=== PATIENT | male | born 1965 | race Caucasian/White ===

== ENCOUNTER 2020-09-09 07:32 | Outpatient (REF) | payer OTHER, SELFPAY ==
[2020-09-09 07:59] LABS: MANUAL DIFF FLAG NO
[2020-09-09 08:03] LABS: Basophils Percent Auto 0.6 % (0-2); Eosinophils Absolute Auto 0.5 X10*3/uL (0.0-0.4); Eosinophils Percent Auto 7.3 % (0-4); Hematocrit 46.8 % (42-52); Hemoglobin 15.4 g/dl (14.0-18.0); Imm Gran Abs Auto 0.02 X10*3/uL (0.00-0.03); Imm Gran Pct Auto 0.3 % (0.0-0.4); Lymphocytes Absolute Auto 1.9 X10*3/uL (1.2-4.9); Lymphocytes Percent Auto 29.5 % (20-40); Mean Corpuscular HGB Conc 32.9 g/dl (31.0-36.0); Mean Corpuscular Hemoglobin 32.3 pg (27.0-33.0); Mean Corpuscular Volume 98.1 fL (80-98); Mean Platelet Volume 11.4 fL (9.4-12.4); Monocytes Absolute Auto 0.7 X10*3/uL (0.1-1.2); Monocytes Percent Auto 10.1 % (2-11); Neutrophils Absolute Auto 3.4 X10*3/uL (2.0-8.3); Neutrophils Percent Auto 52.2 % (45-73); Platelet Count 205 X10*3/uL (160-400); Red Blood Count 4.77 X10*6/uL (4.60-5.80); Red Cell Distribution Width 12.2 % (11.0-16.0); White Blood Count 6.4 X10*3/uL (4.8-10.8)
[2020-09-09 08:30] LABS: Alanine Aminotransferase 25 U/L (0-40); Albumin Level 4.5 g/dL (3.5-5.0); Alkaline Phosphatase 56 U/L (39-117); Amylase 97 U/L (28-100); Anion Gap 11 (12-20); Aspartate Amino Transferase 20 U/L (5-37); Bilirubin Total 0.7 mg/dL (0.0-1.0); Blood Urea Nitrogen 18 mg/dL (9-16); Calcium 9.2 mg/dL (8.4-10.2); Carbon Dioxide 29 mmol/L (22-29); Chloride 103 mmol/L (96-108); Cholesterol 195 mg/dL; Estimated Glomerular Filt Rate > 60; Glucose Random 100 mg/dL (60-115); HDL Cholesterol 50 mg/dL; LDL Cholesterol Calculated 125 mg/dl; Potassium 4.3 mmol/l (3.3-5.1); Sodium 139 mmol/L (135-145); Total Protein 7.7 g/dL (6.5-8.0); Triglycerides 102 mg/dL
[2020-09-09 08:49] LABS: Lipase 88 U/L (8-78)
[2020-09-09 08:52] LABS: Free T4 (Free Thyroxine) 0.99 ng/dL (0.71-1.85); Thyroid Stimulating Hormone 1.75 uIU/mL (0.32-4.0)
[2020-09-09 09:02] LABS: Folate 15.8 ng/mL (> or = 4.0); Vitamin B12 334 pg/mL (200-900)
== END 2020-09-09 07:33 | disposition home or self-care (01) ==
LOC: HO.LAB 07:32
PROVIDERS: Visit Provider Internal Medicine
DX: E66.9 Obesity, unspecified (principal); K21.9 Gastro-esophageal reflux disease without esophagitis; E78.00 Pure hypercholesterolemia, unspecified
CPT/HCPCS: 36415; 80053; 80061; 82150; 82607; 82746; 83690; 84153; 84439; 84443; 85025

== ENCOUNTER 2020-09-23 13:56 | Outpatient (REF) | payer OTHER, SELFPAY ==
--- NOTE | 2020-09-24 13:31 | MHC.AU.P13 ---
Adult Audiological Evaluation Date of Visit: 09/23/20 Reason for Appointment: Audiological evaluation due to recent onset of tinnitus. Mr. Anguiano notes that he began to experience constant, bilateral tinnitus ~2 months ago. He has not noticed any changes to his hearing and feels he hears well. Mr. Anguiano notes mild pain and discomfort in the left ear. 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 Left Ear: Description of Hearing: Normal hearing from 250-4000 Hz, sloping to a mild hearing loss at 6000 Hz, and steeply sloping to a moderately severe hearing loss at 8000 Hz. Speech Recognition Threshold (SRT): Right Ear: 10 dBHL Left Ear: 10 dBHL Word Discrimination: Right Ear: 100% at 50 dBHL Left Ear: 100% at 50 dBHL Interpretation of Results: Tinnitus may be related to high-frequency hearing loss and history of noise exposure. Recommendations: Audiological re-evaluation in one year. Amplification is not warranted at this time. Hearing protection should be used when around loud noise. Discussed exacerbating factors of tinnitus, including high salt intake, caffeine, alcohol, stress/anxiety, and certain medications. It is recommended that Mr. Anguiano use low-level background noise (i.e. fan noise, music, radio, tv, sound generator) to aid in masking his tinnitus when he finds it bothersome. Diagnosis: Primary Diagnosis: H90.3 Bilateral Sensorineural Hearing Loss Secondary Diagnosis: H93.13 Tinnitus, Bilateral Services Performed: Services Performed: Comprehensive Audiological Evaluation (CPT 83709) Tympanometry (CPT 69639) Signature: Provider: Reg Ramsey, [facility]
== END 2020-09-23 13:57 | disposition home or self-care (01) ==
LOC: HO.SH 13:56
PROVIDERS: Visit Provider Internal Medicine
DX: H90.3 Sensorineural hearing loss, bilateral (principal); H93.13 Tinnitus, bilateral
CPT/HCPCS: 92557; 92567

== ENCOUNTER 2021-09-15 07:31 | Outpatient (REF) | payer OTHER, SELFPAY ==
[2021-09-15 07:47] LABS: MANUAL DIFF FLAG NO
[2021-09-15 08:01] LABS: Basophils Absolute Auto 0.1 X10*3/uL (0.0-0.2); Basophils Percent Auto 0.7 % (0-2); Eosinophils Absolute Auto 0.5 X10*3/uL (0.0-0.4); Eosinophils Percent Auto 7.5 % (0-4); Hematocrit 46.1 % (42.0-52.0); Hemoglobin 15.4 g/dl (14.0-18.0); Imm Gran Abs Auto 0.02 X10*3/uL (0.00-0.03); Imm Gran Pct Auto 0.3 % (0.0-0.4); Lymphocytes Absolute Auto 2.1 X10*3/uL (1.2-4.9); Lymphocytes Percent Auto 29.3 % (20-40); Mean Corpuscular HGB Conc 33.4 g/dl (31.0-36.0); Mean Corpuscular Hemoglobin 32.6 pg (27.0-33.0); Mean Corpuscular Volume 97.7 fL (80.0-98.0); Mean Platelet Volume 11.2 fL (9.4-12.4); Monocytes Absolute Auto 0.6 X10*3/uL (0.1-1.2); Monocytes Percent Auto 8.6 % (2-11); Neutrophils Absolute Auto 3.9 x10*3/uL (2.0-8.3); Neutrophils Percent Auto 53.6 % (45-73); Platelet Count 211 X10*3/uL (160-400); Red Blood Count 4.72 X10*6/uL (4.60-5.80); Red Cell Distribution Width 11.9 % (11.0-16.0); White Blood Count 7.2 X10*3/uL (4.8-10.8)
[2021-09-15 08:26] LABS: Estimated Average Glucose 108 mg/dL; Hemoglobin A1c % 5.4 %
[2021-09-15 08:31] LABS: Alanine Aminotransferase 24 U/L (0-40); Albumin Level 4.4 g/dL (3.5-5.0); Alkaline Phosphatase 64 U/L (39-117); Anion Gap 11 (12-20); Aspartate Amino Transferase 18 U/L (5-37); Bilirubin Total 0.5 mg/dL (0.0-1.0); Blood Urea Nitrogen 13 mg/dL (9-16); Calcium 10.3 mg/dL (8.4-10.2); Carbon Dioxide 29 mmol/L (22-29); Chloride 102 mmol/L (96-108); Cholesterol 186 mg/dL; Estimated Glomerular Filt Rate > 60; Glucose Random 103 mg/dL (60-115); HDL Cholesterol 47 mg/dL; LDL Cholesterol Calculated 119 mg/dl; Potassium 4.1 mmol/L (3.3-5.1); Sodium 138 mmol/L (135-145); Total Protein 7.9 g/dL (6.5-8.0); Triglycerides 102 mg/dL
[2021-09-15 08:53] LABS: Free T4 (Free Thyroxine) 0.95 ng/dL (0.71-1.85); Prostate Specific Antigen Scr 0.48 ng/mL (<0.05-4.0); Thyroid Stimulating Hormone 2.31 uIU/mL (0.32-4.0)
[2021-09-15 09:09] LABS: Folate 19.2 ng/mL (> or = 4.0); Vitamin B12 493 pg/mL (200-900)
== END 2021-09-15 07:32 | disposition home or self-care (01) ==
LOC: HO.LAB 07:31
PROVIDERS: PCP Internal Medicine; Visit Provider Internal Medicine
DX: I10 Essential (primary) hypertension (principal); E78.00 Pure hypercholesterolemia, unspecified; Z12.5 Encounter for screening for malignant neoplasm of prostate
CPT/HCPCS: 36415; 80053; 80061; 82607; 82746; 83036; 84153; 84439; 84443; 85025

== ENCOUNTER 2022-03-17 09:53 | Emergency (ER) | payer OTHER, SELFPAY ==
--- NOTE | ~2022-03-17 | XR_ITS ---
EXAMINATION: XR SHOULDER, LEFT CLINICAL INFORMATION: Left shoulder injury. COMPARISON: Left shoulder radiographs dated 06/05/2019. TECHNIQUE: Three views of the left shoulder. FINDINGS: The bones and soft tissues are normal. No fracture. Glenohumeral and acromioclavicular alignment is anatomic with normal joint space. No abnormal soft tissue calcifications. XR/XR shoulder LT min 2V IMPRESSION: Unremarkable left shoulder.
[2022-03-17 10:13] VITALS: BP 153/90; PULSE 75; RESP 18; TEMP 36.5; O2SAT 98; BMI 31.4
--- NOTE | 2022-03-17 11:31 | ED.EXTPRO ---
HPI - Extremity Problem General Chief complaint: Extremity Injury, Upper Stated complaint: l shoulder inj at work Time Seen by Provider: 03/17/22 11:16 Related Data Home Medications Medication Instructions Recorded Confirmed multivitamin,tx-minerals 1 tab PO DAILY 09/13/21 09/13/21 Previous Rx's Medication Instructions Recorded omeprazole 20 mg capsule,delayed 20 mg PO DAILY #30 caps 10/02/20 release albuterol sulfate 90 mcg/actuation 2 puff inhalation QID PRN 09/13/21 aerosol inhaler (ProAir HFA) shortness of breath or wheezing #8.5 grams ibuprofen 800 mg tablet 800 mg PO Q8H PRN pain #14 tabs 03/17/22 oxycodone 5 mg tablet 5 mg PO Q6H PRN pain #14 tabs 03/17/22 Allergies Allergy/AdvReac Type Severity Reaction Status Date / Time shell fish Allergy Unknown anaphylaxis Uncoded 03/17/22 10:13 PMFSH Past Medical History Medical History (Updated 03/17/22 @ 11:33 by MAISHA Watson) Alcohol abuse Allergic rhinitis Cervical radiculopathy Fatty liver GERD (gastroesophageal reflux disease) Hypercholesterolemia Hypertension Lumbar spondylosis Obesity (BMI 30-39.9) Right carpal tunnel syndrome Vitamin D deficiency Surgical History (Updated 05/28/20 @ 13:41 by BRENDON Mueller) History of back surgery History of open reduction and internal fixation (ORIF) procedure Family History Family History (Updated 09/08/20 @ 16:15 by Vidal Villalobos MD) Father No problems noted. Mother History of colostomy reversal Brother ETOH abuse Pancreatitis Myocardial infarct Social History Social History (Updated 09/13/21 @ 11:46 by Vidal Villalobos MD) Housing: House Alcohol intake: current Patient Tobacco Use Status: Former Tobacco user e-Cigarette/Vaping Use: Never Used Second Hand Smoke Exposure: No Advance Directives: No Advance Directives Information Provided: Yes Current occupational status: employed Physical Exam Vital Signs: Vital Signs: Last Vital Signs Temp 97.7 F 03/17/22 10:13 Pulse 75 03/17/22 10:13 Resp 18 03/17/22 10:13 BP 153/90 H 03/17/22 10:13 Pulse Ox 98 03/17/22 10:13 O2 Del Method 03/17/22 10:13 BMI result Body Mass Index 31.4 Discharge Plan Discharge Clinical Impression: Sprain of left shoulder, Work related injury Patient Disposition: Home, Self-Care Instructions: Shoulder Sprain (ED), Return to Work Instructions (ED) Prescriptions: New ibuprofen 800 mg tablet 800 mg PO Q8H PRN (Reason: pain) Qty: 14 0RF oxycodone 5 mg tablet 5 mg PO Q6H PRN (Reason: pain) Qty: 14 0RF Rx Instructions: Partial Fill upon patient request. No Action omeprazole 20 mg capsule,delayed release(DR/EC) 20 mg PO DAILY Qty: 30 5RF multivitamin,tx-minerals Tablet 1 tab PO DAILY albuterol sulfate [ProAir HFA] 90 mcg/actuation HFA aerosol inhaler 2 puff inhalation QID PRN (Reason: shortness of breath or wheezing) Qty: 8.5 0RF Referrals: Max Astudillo MD [Physician] - 2 weeks (If symptoms persist for longer than 2 weeks make a follow-up appointment) Wilfredo,Vidal Austin MD [Primary Care Provider] - 2 days Stand Alone Forms: Work/School Release
--- NOTE | 2022-03-17 11:36 | ED.UPPEXIN ---
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 He denies head injury loss of consciousness or any paresthesias, neck injury, back injury or any other extremity injury or pain. 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) Other Extremity Injury: left: shoulder Other injuries: none Place: work Severity: moderate Relieving factors: immobilization and rest Exacerbating factors: movement of extremity Context: injury (possible twist injury ) Associated symptoms: denies other symptoms Related Data Home Medications Medication Instructions Recorded Confirmed multivitamin,tx-minerals 1 tab PO DAILY 09/13/21 09/13/21 Previous Rx's Medication Instructions Recorded omeprazole 20 mg capsule,delayed 20 mg PO DAILY #30 caps 10/02/20 release albuterol sulfate 90 mcg/actuation 2 puff inhalation QID PRN 09/13/21 aerosol inhaler (ProAir HFA) shortness of breath or wheezing #8.5 grams ibuprofen 800 mg tablet 800 mg PO Q8H PRN pain #14 tabs 03/17/22 oxycodone 5 mg tablet 5 mg PO Q6H PRN pain #14 tabs 03/17/22 Allergies Allergy/AdvReac Type Severity Reaction Status Date / Time shell fish Allergy Unknown anaphylaxis Uncoded 03/17/22 10:13 Review of Systems Review of Systems: Constitutional : No Weight loss, No Fever, No Chills, No Night Sweats, No Fatigue, No Malaise ENT/Mouth : No Hearing loss, No Ear Pain, No Nasal Congestion, No Sinus Pain, No Hoarseness, No sore throat, No Rhinorrhea, No Swallowing Difficulty Eyes: No Eye Pain, No Swelling, No Redness, No Foreign Body, No Discharge, No Vision Changes Cardiovascular : No Chest Pain, No SOB, No Dyspnea on Exertion, No Orthopnea, No Edema, No Palpitations Respiratory : No Cough, No Sputum, No Wheezing, No Smoke Exposure, No Dyspnea Gastrointestinal : No Nausea, No Vomiting, No Diarrhea, No Constipation, No abdominal Pain, No Hematochezia, No Melena Genitourinary : no irregular bleeding, No Dysuria, No Urinary Frequency, No Hematuria, No Urinary Incontinence, No Urgency, No Flank Pain, No Urinary Flow Changes, No Hesitancy Musculoskeletal : + left shoulder joint pain, No Myalgias, No Joint Swelling Skin : No Skin Lesions, No rash Neuro : No Weakness, No Numbness, No Paresthesias, No Loss of Consciousness, No Dizziness, No Headache Psych : No Anxiety/Panic, No Depression, No SI/HI/AH/VH, No Social Issues, Heme/Lymph: No Bruising, No Bleeding,No Lymphadenopathy Endocrine : No Polyuria, No Polydipsia, No Temperature Intolerance Yes all other systems are reviewed and are negative [facility] Past Medical History Attestation statement: The following information was validated with the patient. Source: old records reviewed and nursing notes reviewed Medical History Alcohol abuse Allergic rhinitis Cervical radiculopathy Fatty liver GERD (gastroesophageal reflux disease) Hypercholesterolemia Hypertension Lumbar spondylosis Obesity (BMI 30-39.9) Right carpal tunnel syndrome Vitamin D deficiency Surgical History History of back surgery History of open reduction and internal fixation (ORIF) procedure Family History Family History Father No problems noted. Mother History of colostomy reversal Brother ETOH abuse Pancreatitis Myocardial infarct Social History Social History Housing: House Alcohol intake: current Patient Tobacco Use Status: Former Tobacco user e-Cigarette/Vaping Use: Never Used Second Hand Smoke Exposure: No Advance Directives: No Advance Directives Information Provided: Yes Current occupational status: employed Physical Exam Vital Signs: Vital Signs: Last Vital Signs Temp 97.7 F 03/17/22 10:13 Pulse 75 03/17/22 10:13 Resp 18 03/17/22 10:13 BP 153/90 H 03/17/22 10:13 Pulse Ox 98 03/17/22 10:13 O2 Del Method 03/17/22 10:13 BMI result Body Mass Index 31.4 vital signs have been reviewed as normal and appeared to be correct. Blood pressure 153/90. Heart rate normal. Respiration rate normal. Temperature normal. Oxygen saturation normal. Appearance: Alert. Oriented X3. No acute distress. Head: Normal external exam. Normocephalic. Atraumatic. Eyes: PERRLA. EOMI. Conjunctiva and sclera normal. Eyelids normal. ENT: Pharynx normal. Uvula midline. Moist mucous membranes. No lesions/ulcerations or masses noted on the tongue. Normal voice. No trismus noted. No drooling noted. No muffled voice noted. Neck: Normal inspection. Neck supple. FROM. No adenopathy. Thyroid Normal. No tracheal deviation noted. No crepitus is noted. No meningeal signs. No neck mass noted. No signs of trauma noted. CVS: Normal heart rate and rhythm. Heart sound normal. Pulses normal throughout. No murmurs/rales/gallops. Respiratory: No respiratory distress. Painless inspiration. Breath sounds normal. No wheezes/rales/rhonchi noted. No accessory muscle usage noted or decreased air movement noted. Back: Full range of motion noted. Skin: Skin warm and dry. Normal skin color. Normal skin turgor. No rashes/lesions/lacerations noted. Extremities: Patient with moderate tenderness palpation to the left AC joint and is unable to complete shoulder flexion above his head/shoulder extension behind his back and difficulty doing horizontal rotation. Has normal shoulder abduction/adduction. He has normal internal rotation. No obvious ligamentous or tendon injury noted. No obvious deformities noted. Otherwise all other extremities exhibit normal range of motion nontender. Neuro: Oriented X 3. No motor deficit. No sensory deficit. Reflexes normal. Normal steady gait. No focal neuro deficits noted. CN's II-XII intact bilaterally? Vascular: + radial pulses/+ 2 distal pedal pulses/+2 dorsalis pedis b/l. Normal cap refill. No cyanosis noted to upper extremity nails and lower extremity toes nails. Course Course Course Narrative: X-ray negative for any acute processes. Patient most likely shoulder sprain he does not have any obvious ligamentous or tendon injury although due to limited range of motion this is possible. I explained to him that will place him in a shoulder sling and he would have to follow up with work connection for his job and if symptoms persist for longer than 2-3 weeks and he should follow-up with orthopedics and to return if any new or worsening symptoms. Patient understands agrees with this plan. MDM - Extremity Injury (Upper) Medical Records Attestation: I reviewed the patient's medical records. Imaging Data Left shoulder x-ray: Attestation: I personally reviewed and interpreted this imaging study as follows: Radiologist's impression: FINDINGS: The bones and soft tissues are normal. No fracture. Glenohumeral and acromioclavicular alignment is anatomic with normal joint space. No abnormal soft tissue calcifications.? XR/XR shoulder LT min 2V IMPRESSION: Unremarkable left shoulder. Procedures Orthopedic Splinting/Casting Injury #1: Side: left Upper Extremity Injury Location: shoulder Upper Extremity Immobilizer: sling/shoulder immobilizer Discharge Plan Discharge Clinical Impression: Sprain of left shoulder, Work related injury Patient Disposition: Home, Self-Care Instructions: Shoulder Sprain (ED), Return to Work Instructions (ED) Prescriptions: New ibuprofen 800 mg tablet 800 mg PO Q8H PRN (Reason: pain) Qty: 14 0RF oxycodone 5 mg tablet 5 mg PO Q6H PRN (Reason: pain) Qty: 14 0RF Rx Instructions: Partial Fill upon patient request. No Action omeprazole 20 mg capsule,delayed release(DR/EC) 20 mg PO DAILY Qty: 30 5RF multivitamin,tx-minerals Tablet 1 tab PO DAILY albuterol sulfate [ProAir HFA] 90 mcg/actuation HFA aerosol inhaler 2 puff inhalation QID PRN (Reason: shortness of breath or wheezing) Qty: 8.5 0RF Referrals: Max Astudillo MD [Physician] - 2 weeks (If symptoms persist for longer than 2 weeks make a follow-up appointment) Vidal Villalobos MD [Primary Care Provider] - 2 days Stand Alone Forms: Work/School Release
[2022-03-17] MEDS: Ibuprofen 800 MG TABLET PO (11:39)
== END 2022-03-17 11:48 | disposition home or self-care (01) ==
PROVIDERS: Emergency Provider Student in an Organized Health Care Education/Training Program; PCP Internal Medicine
DX: S43.402A Unspecified sprain of left shoulder joint, initial encounter (principal); X58.XXXA Exposure to other specified factors, initial encounter; Y93.9 Activity, unspecified; Y92.9 Unspecified place or not applicable; Y99.0 Civilian activity done for income or pay; Z79.899 Other long term (current) drug therapy
CPT/HCPCS: 29105; 73030; 99283

== ENCOUNTER → 2022-03-21 10:40 | Outpatient (BNVA) | payer OTHER, SELFPAY | PROVIDERS: PCP Internal Medicine; Visit Provider Physician Assistant Medical | DX: S43.52XA Sprain of left acromioclavicular joint, initial encounter (principal); X58.XXXA Exposure to other specified factors, initial encounter | CPT/HCPCS: 99203 ==

== ENCOUNTER → 2022-03-30 11:08 | Outpatient (BNVA) | payer OTHER, SELFPAY | PROVIDERS: PCP Internal Medicine; Visit Provider Physician Assistant Medical | DX: S43.52XD Sprain of left acromioclavicular joint, subsequent encounter (principal); X58.XXXD Exposure to other specified factors, subsequent encounter | CPT/HCPCS: 99213 ==

== ENCOUNTER → 2022-04-18 15:37 | Outpatient (BNVA) | payer OTHER, SELFPAY | PROVIDERS: PCP Internal Medicine; Visit Provider Internal Medicine | DX: M24.812 Other specific joint derangements of left shoulder, not elsewhere classified (principal) | CPT/HCPCS: 99213 ==

== ENCOUNTER 2022-04-19 19:23 | Outpatient (REF) | payer OTHER, SELFPAY ==
--- NOTE | ~2022-04-19 | MR_ITS ---
EXAMINATION: MR SHOULDER WITHOUT CONTRAST, LEFT CLINICAL INFORMATION: Left shoulder pain, limited range of motion, and clicking following a fall on 03/17/2022. COMPARISON: Most recent left shoulder radiographs dated 03/17/2022. TECHNIQUE: Multisequence MR imaging of the left shoulder was obtained without contrast on a high-field strength scanner. FINDINGS: ROTATOR CUFF: Supraspinatus tendinosis with distal bursal surface partial tearing measuring 1.4 x 1.3 cm (AP x ML). No muscle atrophy or fatty infiltration. BICEPS: Intact proximal long head biceps tendon. Mild fluid within the tendon sheath consistent with mild tenosynovitis. CORACOACROMIAL ARCH: The undersurface of the acromion is curved with tiny subacromial spurs. Zcaepnyw-hv-epinqh acromioclavicular osteoarthritis. Fluid and edema within the subacromial-subdeltoid bursa consistent with mild bursitis. LABRUM/CAPSULE: No displaced labral tear. Intact joint capsule. GLENOHUMERAL JOINT/MARROW: Intact articular cartilage. No acute osseous injury. MR/MR shoulder LT wo con IMPRESSION: 1. Supraspinatus tendinosis with distal bursal surface partial tearing measuring 1.4 x 1.3 cm. 2. Mild proximal long head biceps tenosynovitis without a measurable tendon tear. 3. Tonhcfro-vz-wzfewm acromioclavicular osteoarthritis with tiny subacromial spurs. 4. Mild subacromial-subdeltoid bursitis.
== END 2022-04-19 19:24 | disposition home or self-care (01) ==
LOC: HO.MRI 19:23
PROVIDERS: Visit Provider Internal Medicine
DX: M25.512 Pain in left shoulder (principal)
CPT/HCPCS: 73221

== ENCOUNTER → 2022-04-28 10:26 | Outpatient (BNVA) | payer OTHER, SELFPAY | PROVIDERS: PCP Internal Medicine; Visit Provider Physician Assistant | DX: S43.52XD Sprain of left acromioclavicular joint, subsequent encounter (principal); X58.XXXD Exposure to other specified factors, subsequent encounter | CPT/HCPCS: 99213 ==

== ENCOUNTER 2022-07-01 09:35 | Outpatient (REF) | payer OTHER, SELFPAY ==
[2022-07-01 10:59] LABS: Appearance Urine Clear; Color Urine Yellow; Glucose Urine UA Negative (Negative); Leukocyte Esterase Urine Negative (Negative); Nitrite Urine Negative (Negative); Urine Blood Negative (Negative); Urine Ketones Negative (Negative); Urine Protein Negative (Neg-Trace)
[2022-07-01 11:08] LABS: Bacteria Urine None Seen (None Seen); Hyaline Casts Urine 0-2 /LPF (0-2); RBC Urine 0-2 /HPF (0-2); Squamous Epithelial Cell Urine 0-2 /HPF (0-2); WBC Urine 0-5 /HPF (0-5)
== END 2022-07-01 09:36 | disposition home or self-care (01) ==
LOC: HO.LAB 09:35
PROVIDERS: PCP Internal Medicine; Visit Provider Internal Medicine
DX: I10 Essential (primary) hypertension (principal)
CPT/HCPCS: 81001

== ENCOUNTER 2022-07-02 07:27 | Outpatient (REF) | payer OTHER, SELFPAY ==
--- NOTE | ~2022-07-02 | XR_ITS ---
EXAMINATION: XR CHEST CLINICAL INFORMATION: Cough COMPARISON: August 11, 2014 TECHNIQUE: 2 views of the chest were obtained. FINDINGS: No significant abnormality is noted involving the heart, lungs, mediastinum, bony thorax or soft tissues. Linear scarring seen right upper lobe. XR/XR chest 2V IMPRESSION: No acute disease.
== END 2022-07-02 07:28 | disposition home or self-care (01) ==
LOC: HO.XRAY 07:27
PROVIDERS: PCP Internal Medicine; Visit Provider Internal Medicine
DX: R05.9 Cough, unspecified (principal)
CPT/HCPCS: 71046

== ENCOUNTER 2022-09-16 07:02 | Outpatient (REF) | payer OTHER, SELFPAY ==
[2022-09-16 07:16] LABS: MANUAL DIFF FLAG NO
[2022-09-16 07:27] LABS: Basophils Absolute Auto 0.1 X10*3/uL (0.0-0.2); Basophils Percent Auto 0.6 % (0-2); Eosinophils Absolute Auto 0.5 X10*3/uL (0.0-0.4); Eosinophils Percent Auto 6.9 % (0-4); Hematocrit 44.9 % (42.0-52.0); Hemoglobin 15.2 g/dl (14.0-18.0); Imm Gran Abs Auto 0.03 X10*3/uL (0.00-0.03); Imm Gran Pct Auto 0.4 % (0.0-0.4); Lymphocytes Absolute Auto 2.6 X10*3/uL (1.2-4.9); Lymphocytes Percent Auto 32.9 % (20-40); Mean Corpuscular HGB Conc 33.9 g/dl (31.0-36.0); Mean Corpuscular Hemoglobin 32.8 pg (27.0-33.0); Mean Corpuscular Volume 96.8 fL (80.0-98.0); Mean Platelet Volume 10.7 fL (9.4-12.4); Monocytes Absolute Auto 0.8 X10*3/uL (0.1-1.2); Neutrophils Absolute Auto 3.8 x10*3/uL (2.0-8.3); Neutrophils Percent Auto 49.2 % (45-73); Platelet Count 237 X10*3/uL (160-400); Red Blood Count 4.64 X10*6/uL (4.60-5.80); Red Cell Distribution Width 12.7 % (11.0-16.0); White Blood Count 7.8 X10*3/uL (4.8-10.8)
[2022-09-16 07:44] LABS: Estimated Average Glucose 105 mg/dL; Hemoglobin A1c % 5.3 %
[2022-09-16 08:02] LABS: Alanine Aminotransferase 32 U/L (0-40); Albumin Level 4.1 g/dL (3.5-5.0); Alkaline Phosphatase 68 U/L (39-117); Anion Gap 11 (12-20); Aspartate Amino Transferase 18 U/L (5-37); Bilirubin Total 0.6 mg/dL (0.0-1.0); Blood Urea Nitrogen 12 mg/dL (9-16); Calcium 9.6 mg/dL (8.4-10.2); Carbon Dioxide 29 mmol/L (22-29); Chloride 106 mmol/L (96-108); Cholesterol 203 mg/dL; Estimated Glomerular Filt Rate > 60; Glucose Random 99 mg/dL (60-115); HDL Cholesterol 41 mg/dL; LDL Cholesterol Calculated 138 mg/dl; Potassium 4.5 mmol/L (3.3-5.1); Sodium 141 mmol/L (135-145); Total Protein 7.2 g/dL (6.5-8.0); Triglycerides 124 mg/dL
[2022-09-16 08:20] LABS: Free T4 (Free Thyroxine) 0.95 ng/dL (0.71-1.85); Prostate Specific Antigen Scr 0.45 ng/mL (<0.05-4.0); Thyroid Stimulating Hormone 2.54 uIU/mL (0.32-4.0)
[2022-09-16 08:30] LABS: Folate 14.6 ng/mL (> or = 4.0); Vitamin B12 381 pg/mL (200-900)
== END 2022-09-16 07:03 | disposition home or self-care (01) ==
LOC: HO.LAB 07:02
PROVIDERS: PCP Internal Medicine; Visit Provider Internal Medicine
DX: Z12.5 Encounter for screening for malignant neoplasm of prostate (principal); R73.02 Impaired glucose tolerance (oral); E78.00 Pure hypercholesterolemia, unspecified
CPT/HCPCS: 36415; 80053; 80061; 82607; 82746; 83036; 84153; 84439; 84443; 85025

== ENCOUNTER → 2022-09-26 13:34 | Outpatient (REF) | payer OTHER, SELFPAY ==
--- NOTE | 2022-09-26 13:37 | HM_ITS ---
Conclusion: 1. Patient was monitored for total of 3 days 2. Baseline was normal sinus rhythm with average heart of 89 beats per minute 3. Frequent sinus tachycardia with 28.5% of time heart rate greater than 100 beats per minute 4. Total of 1490 PVCs accounting for 0.4% total beats account for occasional PVCs 5. No significant pauses or bradycardia noted 6. One 18 beat run of SVE which appears to be possibly atrial fibrillation as it is irregularly irregular. No prolonged episodes noted 7. Patient reported 1 event without symptoms, correlated with sinus rhythm MTDD
== END ==
LOC: HO.CARD 13:34
PROVIDERS: PCP Internal Medicine; Visit Provider Internal Medicine
DX: R00.2 Palpitations (principal)
CPT/HCPCS: 93242

== ENCOUNTER → 2022-10-14 08:52 | Outpatient (REF) | payer OTHER, SELFPAY ==
--- NOTE | 2022-10-14 08:54 | CA_ITS ---
Transthoracic Echocardiogram Patient (Last, First, Middle): Paco Anguiano, Gender: Male Date of : 1965 Age: 57 Procedure Date: 10/14/2022 Procedure Type: Transthoracic Echocardiogram Location: OP Height: 165.1 cm Weight: 85.73 kg BSA: 1.93 m2 Heart Rate: 69 bpm BP: 140 / 80 mmHg Territory Service Representative: TOBY Referring MD: Vidal Villalobos MD Symptoms: I48.91 - Unspecified atrial fibrillation Study Quality: Fair ECG Rhythm: Sinus Conclusions: - The left ventricular systolic function is mildly decreased. The calculated ejection fraction is 51% by biplane method. - No obvious valvular pathology seen on this study. - There is mild dilatation of the sinuses of Valsalva measuring 4.50 cm. Findings Left Ventricle Normal left ventricular cavity size. There is normal left ventricular wall thickness. The left ventricular systolic function is mildly decreased. The calculated ejection fraction is 51% by biplane method. There is no evidence of regional wall motion abnormalities. There is mild global hypokinesis. Diastolic function is normal for age. Right Ventricle Normal right ventricular cavity size and systolic function. Atria Both atria are normal in size. Aortic Valve There is a normal trileaflet aortic valve. There is no aortic valve stenosis. There is no aortic valve regurgitation. Mitral Valve There is mild anterior mitral leaflet thickening. There is no mitral valve regurgitation. There is no mitral valve stenosis. Pulmonic Valve The pulmonic valve is likely normal. Tricuspid Valve There is no tricuspid valve regurgitation. Tricuspid regurgitation envelope is inadequate for calculation of right ventricular systolic pressure. Great Vessels The asc aorta is normal in size. There is mild dilatation of the sinuses of Valsalva measuring 4.50 cm. Venous The inferior vena cava is normal in size and collapses greater than 50% with inspiration. Pericardium/Pleural There is no evidence of pericardial effusion. Prior Study Comparison No prior study available for comparison. Recommendations, Care & Conclusions No obvious valvular pathology seen on this study. Measurements 2D Linear Measurements IVSd: 1.01 0.6-0.9/0.6-1.0 cm LVIDd: 4.59 3.9-5.3/4.2-5.9 cm LVIDd Index: 2.38 2.4-3.2/2.2-3.1 cm/m2 LVIDs: 2.70 2.0-3.6 cm LVPWd: 0.84 0.7-1.1 cm LA Diam: 3.30 2.7-3.8/3.0-4.0 cm LAIDs Index: 1.71 1.5-2.3 cm/m2 LV Mass: 176.69 67-162/88-224 g LV Mass Index: 91.55 43-95/49-115 g/m2 LVOT Diam: 2.10 3.0+(-)1.3 cm 2D Systolic Function EF 4C: 53.10 >55% EF 2C: 49.00 >55% EF BiP: 50.60 >55% Mitral Valve MV Pk E: 0.71 MV PK A: 0.62 MV Decel Time: 215.00 E/A: 1.10 E'Lateral: 9.68 E'Medial: 7.07 E/E' Med: 10.00 E/E' Lat: 7.30 PHT: 63.00 MVA PHT: 3.49 Decel Dare: 3.29 Aortic Valve AoV Pk Jigar: 1.16 AoV Mn Jigar: 0.83 AoV VTI: 0.24 AoV Pk Grad: 5.00 Aov Mn Grad: 3.00 BLAZE Cont.VTI: 3.17 LVOT LVOT Pk Jigar: 1.13 LVOT Mn Jigar: 0.80 LVOT VTI: 0.22 LVOT Pk Grad: 5.00 LVOT Mn Grad: 3.00 LVOT Diam: 2.10 LVOT Area: 3.46 Diastolic Function MV Pk E: 0.71 MV Pk A: 0.62 E/A: 1.10 E'Medial: 7.07 E/E' Med: 10.00 E' Laterial: 9.68 E/E' Lat: 7.30 Right Ventricle TAPSE (mm): 17.10 TVS' Jigar: 12.30 Tricuspid Valve RA Press: 3.00 Great Vessels Aorta Sinus of Valsalva: 4.50 2.0-3.5 cm Ao Asc: 3.70 2.1-3.4 cm Pulmonary Valve PV Pk Jigar: 0.68 Peak PV Grad: 2.00 Updated in Other Vendor System with Status of Final James Chambers MD electronically signed on 10/15/2022 1:34:58 PM with status of Final
== END ==
LOC: HO.CARD 08:52
PROVIDERS: PCP Internal Medicine; Visit Provider Internal Medicine
DX: I48.91 Unspecified atrial fibrillation (principal)
CPT/HCPCS: 93306

== ENCOUNTER → 2022-12-13 13:01 | Outpatient (BNVA) | payer OTHER, SELFPAY | PROVIDERS: PCP Internal Medicine; Referring Provider Internal Medicine; Visit Provider Internal Medicine Cardiovascular Disease | DX: I48.91 Unspecified atrial fibrillation (principal); I71.20 Thoracic aortic aneurysm, without rupture, unspecified; I10 Essential (primary) hypertension | CPT/HCPCS: 93005; 99202 ==

== ENCOUNTER 2022-12-16 12:00 | Outpatient (RCR) | payer OTHER, SELFPAY | END 2022-12-23 12:12 | disposition home or self-care (01) | LOC: HO.PT 12:00 | PROVIDERS: PCP Internal Medicine; Visit Provider Orthopaedic Surgery | DX: Z98.890 Other specified postprocedural states (principal) | CPT/HCPCS: 97110; 97140; 97162; 97535 ==

== ENCOUNTER → 2022-12-20 09:13 | Outpatient (REF) | payer OTHER, SELFPAY ==
--- NOTE | 2022-12-20 09:22 | CA_ITS ---
Acquisition Time: 2022-12-20 10:20:45 Total Exercise Time: 00:10:34 Test Indications: PALPITATIONS Medications: Protocol: KARRI Max HR: 166 BPM 103% of Pred: 161 BPM Max BP: 188/088 mmHG Max Work Load: 12.6 METS Exercise stress test with exercise 10 min 34 sec of Karri protocol, achieving 103% MPHR, 12.6 METs, with mild sob, no chest discomfort or palpitations, with 3 isolated PVCs noted in early recovery, without other arrythmia, with normotensive response to exercise, without EKG changes meeting criteria for ischemia. Test reviewed with Dr Giraldo Referred By: Juwan Giraldo Overread By: MARIBEL CONNORS
[2022-12-20 10:39] LABS: Anion Gap 11 (12-20); Blood Urea Nitrogen 12 mg/dL (9-16); Calcium 9.5 mg/dL (8.4-10.2); Carbon Dioxide 25 mmol/L (22-29); Chloride 107 mmol/L (96-108); Estimated Glomerular Filt Rate > 60; Glucose Random 101 mg/dL (60-115); Potassium 4.4 mmol/L (3.3-5.1); Sodium 139 mmol/L (135-145)
[2022-12-20 10:42] LABS: B Type Natriuretic Peptide 26 pg/mL (<100)
== END ==
LOC: HO.CARD 09:13
PROVIDERS: PCP Internal Medicine; Visit Provider Internal Medicine Cardiovascular Disease
DX: R00.2 Palpitations (principal); I48.91 Unspecified atrial fibrillation; I71.20 Thoracic aortic aneurysm, without rupture, unspecified
CPT/HCPCS: 36415; 80048; 83880; 93017

== ENCOUNTER 2023-01-02 10:54 | Outpatient (REF) | payer OTHER, SELFPAY ==
--- NOTE | ~2023-01-02 | CT_ITS ---
EXAMINATION: CT ANGIOGRAM CHEST CLINICAL INFORMATION: Thoracic aortic aneurysm without rupture. COMPARISON: None available. TECHNIQUE: Multiple axial images were obtained through the chest after the administration of 50 mL of Omnipaque 350 intravenous contrast. Extensive vascular post-processing including two-dimensional and three-dimensional reformatted images were created and reviewed on an independent workstation. This CT examination was performed using dose optimization techniques as appropriate, variously including the following: *Automated exposure control *Adjustment of mA and/or kV according to patient size (this includes techniques or standardized protocols for targeted exams where dose is matched to indication/reason for exam; i.e. extremities or head) *Use of iterative reconstruction technique DLP: 159 mGy-cm VASCULAR FINDINGS: There is mild aneurysmal dilatation of the ascending thoracic aorta. Measurements performed perpendicular to a center line show a maximal dimension in the ascending aorta of 4.1 cm. At the level of the sinuses of Valsalva, maximum dimension is minimally larger, at 4.2 Cm. Three-vessel branching pattern of the arch is seen with widely patent great vessels. A tricuspid aortic valve is present. NONVASCULAR FINDINGS: LUNGS: The lungs are clear with no evidence of inflammation or nodules. MEDIASTINUM: Heart size is normal. No mediastinal or hilar lymphadenopathy is detected. No significant coronary calcium is seen. PLEURA: There is no pleural effusion. No pleural mass or thickening. AXILLA: No lymphadenopathy. UPPER ABDOMEN: Unremarkable. OSSEOUS STRUCTURES: Mild degenerative changes are present in the spine. No bony destructive lesions. CT/CT angio chest aorta IMPRESSION: Mild aneurysmal dilatation of the ascending aorta with maximal dimension at the level of the sinuses of Valsalva of 4.6 with 4.1 cm in the ascending aorta. Maximal dimension for a patient of 57 years of age would be 4.0 cm. Normal aortic diameters (in millimeters) Ascending aorta: 31+0.16 x age. Descending aorta: 21+0.16 x age. Reference: [employer] Cardiovascular J 2006 January; 40 (3): 175-178
[2023-01-02] MEDS: iohexoL 350 MG/ML 100 ML INFUS..BTL IV (11:42)
== END 2023-01-02 10:55 | disposition home or self-care (01) ==
LOC: HO.CT 10:54
PROVIDERS: PCP Internal Medicine; Visit Provider Internal Medicine Cardiovascular Disease
DX: I71.20 Thoracic aortic aneurysm, without rupture, unspecified (principal)
CPT/HCPCS: 71275; Q9967

== ENCOUNTER 2023-02-01 06:27 | Outpatient (REF) | payer OTHER, SELFPAY ==
[2023-02-01 07:41] LABS: Estimated Average Glucose 100 mg/dL; Hemoglobin A1c % 5.1 %
[2023-02-01 08:03] LABS: Alanine Aminotransferase 19 U/L (0-40); Albumin Level 4.2 g/dL (3.5-5.0); Alkaline Phosphatase 75 U/L (39-117); Anion Gap 12 (12-20); Aspartate Amino Transferase 17 U/L (5-37); Bilirubin Total 0.4 mg/dL (0.0-1.0); Blood Urea Nitrogen 17 mg/dL (9-16); Calcium 9.8 mg/dL (8.4-10.2); Carbon Dioxide 31 mmol/L (22-29); Chloride 108 mmol/L (96-108); Cholesterol 189 mg/dL; Estimated Glomerular Filt Rate 59; Glucose Random 102 mg/dL (60-115); HDL Cholesterol 46 mg/dL; LDL Cholesterol Calculated 125 mg/dl; Sodium 146 mmol/L (135-145); Triglycerides 90 mg/dL
== END 2023-02-01 06:28 | disposition home or self-care (01) ==
LOC: HO.LAB 06:27
PROVIDERS: PCP Internal Medicine; Visit Provider Internal Medicine
DX: E78.00 Pure hypercholesterolemia, unspecified (principal); R73.02 Impaired glucose tolerance (oral)
CPT/HCPCS: 36415; 80053; 80061; 83036

== ENCOUNTER 2023-03-06 09:00 | Outpatient (RCR) | payer OTHER, SELFPAY | END 2023-04-13 09:15 | disposition home or self-care (01) | LOC: HO.PT 09:00 | PROVIDERS: PCP Internal Medicine; Visit Provider Orthopaedic Surgery | DX: Z98.890 Other specified postprocedural states (principal) | CPT/HCPCS: 97110; 97161 ==

== ENCOUNTER 2023-05-18 15:57 | Outpatient (AMB) | payer OTHER, SELFPAY ==
[2023-05-18 16:14] VITALS: BP 128/70; PULSE 78; RESP 12; O2SAT 98; BMI 30.5
--- NOTE | 2023-05-18 16:14 | A.OFFPC_ITS ---
Vital Signs 05/18/23 16:14 Height 5 ft 5 in Weight 183 lb 6 oz BMI 30.5 BP 128/70 Blood Pressure Location Lt brachial Position Sitting Respiration 12 Pulse 78 Pulse Source Pulse Oximeter Pulse Oximetry (%) 98 Oxygen Delivery Method Room Air Intake Visit Reasons: hypercholesterol , a fib Intake Note: Patient would like to get flu shot if possible. Technical Specialist Required: No Accompanied by: Self / Same As Patient Allergies shell fish Allergy (Unknown, Uncoded 05/18/23 16:20) Anaphylaxis Tobacco use date assessed: 09/15/22 Dental Screening Dental Screen Date: 05/18/23 Did you have a dental visit in the last 12 months?: No Did you have a dental problem in the last 6 months where you did not have access to dental care?: No Was dental information given to patient?: Patient has dentist HPI hypercholesterol , a fib HPI0 Details 58-year-old obese male with atrial fibri llation hypertension thoracic aortic aneurysm reactive airway disease impaired glucose tolerance GERD and hyp ercholesterolemia coming in for follow-up. Last seen in January 2023. Patient is up-to-date with colonoscopy echocardiogram was last done in September 2022 dilatation to 4.5. Patient has been doing fine otherwise no nausea no vomiting no chest pains no shortness of breath no bowel bladder symptoms. [facility] Medical History Palpitations Allergic rhinitis Alcohol abuse GERD (gastroesophageal reflux disease) Lumbar spondylosis Obesity (BMI 30-39.9) Vitamin D deficiency Cervical radiculopathy Right carpal tunnel syndrome Fatty liver Hypercholesterolemia Hypertension Surgical History H/O shoulder surgery History of back surgery History of open reduction and internal fixation (ORIF) procedure Family History Father No problems noted. Mother History of colostomy reversal Brother ETOH abuse Pancreatitis Myocardial infarct Brother Myocardial infarct Social History Housing: House Alcohol intake: current Patient Tobacco Use Status: Former Tobacco user Tobacco use type: Cigarette Years Smoked: quit 1989 e-Cigarette/Vaping Use: Never Used Second Hand Smoke Exposure: No Current occupational status: employed Current occupation: On leave Cognitive needs: No Hearing needs: No Vision needs: No Questionnaire Thrive Questionnaire Date Thrive assessed: 09/15/22 JOSE-7 AMB Questionnaire JOSE-7 Date JOSE - 7 assessed: 09/15/22 Source: Developed by Drs. Joshua Kaminski, Ginette Bruce, Luis Eduardo Jones and colleagues, with an educational sanjuanita from [employer]. Physical exam (Primary Care) Vital Signs: Last Vital Signs Pulse 78 05/18/23 16:14 Resp 12 05/18/23 16:14 BP 128/70 05/18/23 16:14 Pulse Ox 98 05/18/23 16:14 Oxygen Delivery Method Room Air 05/18/23 16:14 BMI result Body Mass Index 30.5 Tobacco/Smoking Status: Tobacco use Status Tobacco use date assessed 09/15/22 05/18/23 16:21 Patient Tobacco Use Status Former Tobacco user 05/18/23 16:21 Tobacco use type Cigarette 05/18/23 16:21 e-Cigarette/Vaping Use Never Used 05/18/23 16:21 Thrive Assessment: Date of Thrive Assessment Date Thrive assessed 09/15/22 05/18/23 16:21 Const General: alert; No acute distress Eyes Conjunctivae: conjunctivae normal Resp Auscultation: clear to auscultation bilaterally Cardio Rate: regular rate Rhythm: regular rhythm GI Inspection: Yes normal to inspection Extrem General: Yes normal to inspection and No edema Assessment and Plan Assessment & Plan (1) Thoracic aortic aneurysm: Comment: 09/2022 Code(s): I71.20 - Thoracic aortic aneurysm, without rupture, unspecified Plan: Continuing to monitor. September 2022 last testing/echocardiogram (2) Atrial fibrillation: Comment: September 2022 Patient was monitored for total of 3 days 2. Baseline was normal sinus rhythm with average heart of 89 beats per minute 3. Frequent sinus tachycardia with 28.5% of time heart rate greater than 100 beats per minute 4. Total of 1490 PVCs accounting for 0.4% total beats account for occasional PVCs 5. No significant pauses or bradycardia noted 6. One 18 beat run of SVE which appears to be possibly atrial fibrillation as it is irregularly irregular. No prolonged episodes noted 7. Patient reported 1 event without symptoms, correlated with sinus rhythm Code(s): I48.91 - Unspecified atrial fibrillation Plan: Patient has been stable. ff up with cardiology, KAVYA low 1- will continue to monitor (3) Impaired glucose tolerance: Code(s): R73.02 - Impaired glucose tolerance (oral) Plan: Decrease the amount of carbohydrate intake, pasta, bread, rice and potatoes are all sugar and that is aside from all the sweet stuff, remember that fruits are good but they are Sweet also. (4) Obesity (BMI 30-39.9): Code(s): E66.9 - Obesity, unspecified Plan: Diet and exercise (5) GERD (gastroesophageal reflux disease): Code(s): K21.9 - Gastro-esophageal reflux disease without esophagitis Plan: Avoid the foods that causes that usually spicy foods, tomato products, juices, coffee, soda and foods that your sensitive to. After eating do not lie down, allow 3-4 hours before in lie down. And keep the head of bed above 30 degrees to avoid the acid from going up. (6) Hypercholesterolemia: Code(s): E78.00 - Pure hypercholesterolemia, unspecified Plan: Avoid fried foods, chicken skin, eggs, butter margarine, pastries and meat. Be it pork or beef they have a lot of cholesterol LDL goal of less than 130 and triglyceride of less than 150 (7) Hypertension: Comment: normal PFT and stress test 2019 Code(s): I10 - Essential (primary) hypertension Qualifiers: Hypertension type: essential hypertension Qualified Code(s): I10 - Ess ential (primary) hypertension Plan: Continue with blood pressure medication. Decrease salt intake and exercise continue with metoprolol 50 mg once a day and amlodipine 5 mg once a day Orders: Orders Free T4 (Free Thyroxine) 3 Months E78.00 - Pure hypercholesterolemia, unspecified Thyroid Stimulating Hormone 3 Months E78.00 - Pure hypercholesterolemia, unspecified Vitamin B12 and Folate 3 Months E78.00 - Pure hypercholesterolemia, unspecified Complete Blood Count Auto Diff 3 Months E78.00 - Pure hypercholesterolemia, unspecified Comprehensive Met. Panel 3 Months E78.00 - Pure hypercholesterolemia, unspecified Hemoglobin A1c 3 Months E78.00 - Pure hypercholesterolemia, unspecified Lipid Panel 3 Months E78.00 - Pure hypercholesterolemia, unspecified Prostate Specific Antigen Scr 3 Months E78.00 - Pure hypercholesterolemia, unspecified Coding Level of Care Code Est Pt Level 4 (75199) Diagnoses Thoracic aortic aneurysm I71.20 Atrial fibrillation I48.91 Impaired glucose tolerance R73.02 Obesity (BMI 30-39.9) E66.9 GERD (gastroesophageal reflux disease) K21.9 Hypercholesterolemia E78.00 Essential hypertension I10 Hypertension type: essential hypertension
== END 2023-05-18 17:29 | disposition home or self-care (01) ==
PROVIDERS: PCP Internal Medicine; Visit Provider Internal Medicine
DX: I71.20 Thoracic aortic aneurysm, without rupture, unspecified (principal); I48.91 Unspecified atrial fibrillation; E66.9 Obesity, unspecified; Z68.30 Body mass index [BMI] 30.0-30.9, adult; R73.02 Impaired glucose tolerance (oral); K21.9 Gastro-esophageal reflux disease without esophagitis; E78.00 Pure hypercholesterolemia, unspecified; I10 Essential (primary) hypertension
CPT/HCPCS: 99214

== ENCOUNTER 2023-06-13 09:12 | Outpatient (AMB) | payer OTHER, SELFPAY ==
--- NOTE | 2023-06-13 09:21 | AM.OFFVISNUR ---
Intake Intake Visit Reasons: Flu vaccine Allergies shell fish Allergy (Unknown, Uncoded 05/18/23 16:20) Anaphylaxis Office Procedures Flu Questionnaire Does the patient have a severe egg allergy?: No Does the patient have severe life threatening allergies?: No Does the patient have a fever or illness today?: No Has the patient ever had Guillain-Amana Syndrome?: No Has the patient ever had any past reaction to a flu shot?: No Immunizations flu vacc [id number] 6mos up(PF) 60 mcg(15 mcgx4)/0.5 mL IM syringe Performing Provider: Vidal Villalobos MD Performing Location: [facility] Administered by: Diane Lazar RN on 06/13/23 09:21 Dose Route Admin Location Dispensed Lot Number Expiration Date NDC Vehicle Delivery Worker 0.5 mL IM Left Deltoid 0.5 mL [id number] 02/18/24 [id number] Ablyn[employer] VIS Given Date VIS Provided VIS Publication Date 06/13/23 Single Vaccine 21 Eligibility Eligibility Date Funding Source Not [facility] Eligible 06/13/23 Private Coding Assessment & Plan Assessment & Plan Orders: Orders Influenza [id number] Immunization Today Z23 - Encounter for immunization
== END 2023-06-13 09:24 | disposition home or self-care (01) ==
PROVIDERS: PCP Internal Medicine; Visit Provider Internal Medicine
DX: Z23 Encounter for immunization (principal)
CPT/HCPCS: 90471; 90686

== ENCOUNTER 2023-07-18 07:33 | Day surgery (SDC) | payer OTHER, SELFPAY ==
[2023-07-12 09:26] VITALS: BMI 30.9
--- NOTE | 2023-07-17 08:27 | P.CONAN_ITS ---
Documented by User: Clarita Davis NP 07/17/23 08:32 HPI - Anesthesia Eval Consult details Narrative: 58yo M for Upper Endoscopy and Colonoscopy ? PAF - Short run 1 x SVT vs afib on holter per 11/2022 cardiology office visit. No OAC. PMFSH Active Problems Active Problems: All Active Problems (Updated 07/12/23 @ 09:36 by Alina Magallon RN) Colon cancer screening (Acute) Thoracic aortic aneurysm (Acute) Atrial fibrillation (Acute) COVID-19 virus infection (Acute) Annual physical exam (Acute) Cough (Acute) Left shoulder pain (Acute) Reactive airway disease (Acute) Impaired glucose tolerance (Acute) Pain in finger of both hands (Acute) Tinnitus (Acute) Annual physical exam (Acute) GERD (gastroesophageal reflux disease) (Acute) Obesity (BMI 30-39.9) (Acute) Fatty liver (Acute) Hypercholesterolemia (Acute) Hypertension (Acute) Past Medical History Medical History PAF (paroxysmal atrial fibrillation) Palpitations Allergic rhinitis Alcohol abuse GERD (gastroesophageal reflux disease) Lumbar spondylosis Obesity (BMI 30-39.9) Vitamin D deficiency Cervical radiculopathy Right carpal tunnel syndrome Fatty liver Hypercholesterolemia Hypertension Family History Family History Father No problems noted. Mother History of colostomy reversal Brother ETOH abuse Pancreatitis Myocardial infarct Brother Myocardial infarct Surgical History Surgical History H/O colonoscopy H/O shoulder surgery History of back surgery History of open reduction and internal fixation (ORIF) procedure Social History Housing: House Alcohol intake: current Alcohol intake frequency: a few times a month Patient Tobacco Use Status: Former Tobacco user Quit Date: 30 years ago Tobacco use type: Cigarette Years Smoked: quit 1989 e-Cigarette/Vaping Use: Never Used Second Hand Smoke Exposure: No Use of substances other than those prescribed or required for medical reasons: No Are you DNR?: No Advance Directives: No Advance Directives Information Provided: Yes Current occupational status: employed Current occupation: On leave Cognitive needs: No Hearing needs: No Vision needs: No Meds Allergies Allergy/AdvReac Type Severity Reaction Status Date / Time shellfish derived Allergy Severe Anaphylaxis Verified 07/12/23 09:24 Exam Height,Weight and Vital Signs: Height 5 ft 4.5 in Weight 83.007 kg Pertinent Lab Results Pertinent Lab Results: Laboratory Tests 09/16/22 02/01/23 02/01/23 07:14 06:33 06:33 WBC 7.8 Hgb 15.2 Hct 44.9 Plt Count 237 Sodium 146 H Potassium 5.0 Chloride 108 Carbon Dioxide 31 H BUN 17 H Creatinine 1.26 Narrative Narrative: EKG 11/2022 normal sinus rhythm with normal EKG Exercise Stress 12/2022 Protocol: DANNY Max HR: 166 BPM 103% of Pred: 161 BPM Max BP: 188/088 mmHG Max Work Load: 12.6 METS Exercise stress test with exercise 10 min 34 sec of Danny protocol, achieving 103% MPHR, 12.6 METs, with mild sob, no chest discomfort or palpitations, with 3 isolated PVCs noted in early recovery, without other arrythmia, with normotensive response to exercise, without EKG changes meeting criteria for ischemia. Test reviewed with Dr Giraldo ECHO 11/2022 Conclusions: - The left ventricular systolic function is mildly decreased. The calculated ejection fraction is 51% by biplane method. - No obvious valvular pathology seen on this study. - There is mild dilatation of the sinuses of Valsalva measuring 4.50 cm. Assessment and Plan Assessment Anesthesia Assessment: Chart Reviewed Documented by User: Ling Griffin MD 07/18/23 09:01 [facility] Active Problems Active Problems: All Active Problems (Updated 07/18/23 @ 08:14 by Ling Griffin MD) Colon cancer screening (Acute) Ascending Thoracic aortic aneurysm 4.2cm Atrial fibrillation (Acute) COVID-19 virus infection (Acute) Annual physical exam (Acute) Cough (Acute) Left shoulder pain (Acute) Reactive airway disease (Acute) Impaired glucose tolerance (Acute) Pain in finger of both hands (Acute) Tinnitus (Acute) Annual physical exam (Acute) GERD (gastroesophageal reflux disease) (Acute) Obesity (BMI 30-39.9) (Acute) Fatty liver (Acute) Hypercholesterolemia (Acute) Hypertension Denies BETH Past Medical History Medical History PAF (paroxysmal atrial fibrillation) Palpitations Allergic rhinitis Alcohol abuse GERD (gastroesophageal reflux disease) Lumbar spondylosis Obesity (BMI 30-39.9) Vitamin D deficiency Cervical radiculopathy Right carpal tunnel syndrome Fatty liver Hypercholesterolemia Hypertension Family History Family History Father No problems noted. Mother History of colostomy reversal Brother ETOH abuse Pancreatitis Myocardial infarct Brother Myocardial infarct Family history of problems with anesthesia: No Surgical History Surgical History H/O colonoscopy H/O shoulder surgery History of back surgery History of open reduction and internal fixation (ORIF) procedure History of Problems with Anesthesia: No Social History Housing: House Alcohol intake: current Alcohol intake frequency: a few times a month Patient Tobacco Use Status: Former Tobacco user Quit Date: 30 years ago Tobacco use type: Cigarette Years Smoked: 1989 e-Cigarette/Vaping Use: Never Used Second Hand Smoke Exposure: No Use of substances other than those prescribed or required for medical reasons: No Are you DNR?: No Advance Directives: No Advance Directives Information Provided: Yes Current occupational status: employed Current occupation: On leave Cognitive needs: No Hearing needs: No Vision needs: No Meds Allergies Allergy/AdvReac Type Severity Reaction Status Date / Time shellfish derived Allergy Severe Anaphylaxis Verified 07/12/23 09:24 Exam Height,Weight and Vital Signs: Height 5 ft 4.5 in Weight 83.007 kg Vital Signs Temp Pulse Resp BP Pulse Ox O2 Del Method 07/18/23 08:10 99.2 F 75 16 157/94 H 97 Room Air Airway Mallampati Class: II TM Dist: >3cm Neck ROM: Full Partial: Upper Loose/Missing/Broken Teeth: Yes (Partial denture top. Denies broken or loose teeth) Heart: RRR Lungs: CTAB Assessment and Plan Assessment Anesthesia Assessment: Anesthesia Plan Discussed Final Anesthetic Review Family History of Problems with Anesthesia: No History of Problems with Anesthesia: No NPO: Yes ASA Class: III Final Preanesthetic Review: No Changes in Pt Med Stat, Meds/Allgs Chart Reviewed, Consent Obtained/Reviewed and Anes Risks/Benef Reviewed Patient Risk: Intermediate Procedure Risk: Low Assessment/Block/Sedation in SS: Assess/Block/Sedation-SS Anesthetic Plan Anesthetic Plan: MAC: Disposition: Standard PACU
[2023-07-18 07:58] VITALS: BMI 31.7
[2023-07-18 07:59] VITALS: BMI 31.7
[2023-07-18 08:10] VITALS: BP 157/94; PULSE 75; RESP 16; TEMP 37.3; O2SAT 97
--- NOTE | 2023-07-18 08:18 | MHC.SHP ---
Pre-Procedural Eval Section A Date of Service: 07/18/23 Section B Chief Complaint: gerd,screening Details of Present Illness: see H&P Relevant Family History (Specify if Yes): No Relevant Social History: None Present Medications: see Short Stay Collaborative assessment Medical History: No relevant PMH History of Previous Operations: No relevant previous surgery Allergies: Allergies Allergy/AdvReac Type Severity Reaction Status Date / Time shellfish derived Allergy Severe Anaphylaxis Verified 07/12/23 09:24 Review of Systems Sugical H&P ROS: Negative: Constitution, Cardiovascular, Respiratory, Neurological, Psychiatric, Hem-Onc, Allergic/Immunologic, Gastrointestinal, Genitourinary, Musculoskeletal, Integumentary, Endocrine and Eyes/Ears/Nose/Throat Exam Surgical H&P Exam: Normal: HEENT, Normal: Heart, Normal: Lungs, Normal: Extremities, Normal: Abdomen, Normal: Skin and Normal: Neurological Plan Diagnosis/Plan: Unchanged I have reviewed the history and physical and performed a pertinent physical examination on my patient. No changes have occurred unless specified. Time Spent With Patient Time: Total time managing care of this patient today ____ minutes.
[2023-07-18] MEDS: Lactated Ringers 1,000 ML 100 ML IVCONT (08:19)
[2023-07-18 09:03] VITALS: BP 126/72; PULSE 71; RESP 16; TEMP 36.9; O2SAT 99
--- NOTE | 2023-07-18 09:07 | PM.OP ---
Brief Operative Note Date of Service: 07/18/23 Pre-op diagnosis: screening gerd Post-op diagnosis: same Surgeon: Kenney England MD Anesthesia: MAC Was an Computer Information Systems Professor used for this Procedure?: No Estimated blood loss (mL): 2 Pathology: other Condition: stable Disposition: PACU
[2023-07-18 09:18] VITALS: BP 120/80; PULSE 84; RESP 16; O2SAT 97
[2023-07-18 09:33] VITALS: BP 143/96; PULSE 65; RESP 16; TEMP 36.9; O2SAT 97
--- NOTE | 2023-07-18 10:41 | OP_ITS ---
DATE OF SERVICE: 07/18/2023 SURGEON: Kenney England MD INDICATIONS: 1. Gastroesophageal reflux disease. 2. Colon cancer screening. PREOPERATIVE DIAGNOSIS: POSTOPERATIVE DIAGNOSIS: PROCEDURE PERFORMED: Upper endoscopy with biopsy, colonoscopy to the cecum. ESTIMATED BLOOD LOSS: COMPLICATIONS: ANESTHESIA: Monitored anesthesia care. ASSISTANTS: SPECIMENS: DESCRIPTION OF PROCEDURE: A history and physical was performed. The risks and benefits of the procedure were explained to the patient. Informed consent was obtained. The patient was placed in the left lateral decubitus position. The Olympus video gastroscope was introduced into the esophagus, stomach, and duodenum. Examination was performed. The scope was removed. He was repositioned for colonoscopy. A digital rectal exam was performed and was found to be normal. The Olympus pediatric video colonoscope was introduced into the rectum and advanced to the cecum. The cecum was identified by transillumination, palpation, and identification of ileocecal valve. Examination was performed. The scope was removed. He tolerated the procedure well and was returned to the recovery area in stable condition. FINDINGS: Upper endoscopy: 1. Esophagus: The esophagus showed a slightly irregular EG junction. This was biopsied. 2. Stomach: The stomach showed no evidence of masses, ulcers, or polyps. Antral biopsies were obtained. 3. Duodenum: The bulb and 2nd portion were normal. Colonoscopy: The terminal ileum was not examined. The visualized colonic mucosa was normal. The quality of the prep was good. No polyps were identified. Retroflexed examination was remarkable for small internal hemorrhoids. IMPRESSION: 1. Gastroesophageal reflux disease. 2. Normal colonoscopy. RECOMMENDATION: 1. Follow up the biopsy results. 2. Repeat colonoscopy is recommended in 5 years for average risk individuals with a family history of colon polyps. MD CARMELO Hunter/ASHLI / [phone]
== END 2023-07-18 10:15 | disposition home or self-care (01) ==
PROVIDERS: PCP Internal Medicine; Visit Provider Internal Medicine Gastroenterology
PROC: (CPT 45378; principal; 2023-07-18 08:30)
DX: Z12.11 Encounter for screening for malignant neoplasm of colon (principal); Z83.719 Family history of colon polyps, unspecified; K64.8 Other hemorrhoids; K21.9 Gastro-esophageal reflux disease without esophagitis; K29.70 Gastritis, unspecified, without bleeding; K76.0 Fatty (change of) liver, not elsewhere classified; B96.81 Helicobacter pylori [H. pylori] as the cause of diseases classified elsewhere; I10 Essential (primary) hypertension; E78.00 Pure hypercholesterolemia, unspecified; J30.9 Allergic rhinitis, unspecified; E55.9 Vitamin D deficiency, unspecified; I48.0 Paroxysmal atrial fibrillation; E66.9 Obesity, unspecified; Z68.30 Body mass index [BMI] 30.0-30.9, adult; Z79.899 Other long term (current) drug therapy; Z98.890 Other specified postprocedural states; Z87.891 Personal history of nicotine dependence
CPT/HCPCS: 45378; 43239; 88305; 88342; J2704

== ENCOUNTER 2023-09-13 10:40 | Emergency (ER) | payer MEDICAID, SELFPAY ==
--- NOTE | ~2023-09-13 | CT_ITS ---
EXAMINATION: CT ABDOMEN AND PELVIS WITH CONTRAST CLINICAL INFORMATION: Left lower abdominal pain with diarrhea COMPARISON: None available. TECHNIQUE: Multidetector volumetric images were obtained from the superior aspect of the liver through the pubic symphysis following administration 85 mL of Omnipaque 350 intravenous contrast. Sagittal and coronal reformatted images were obtained on the technologist's workstation. Oral contrast: No This CT examination was performed using dose optimization techniques as appropriate, variously including the following: *Automated exposure control *Adjustment of mA and/or kV according to patient size (this includes techniques or standardized protocols for targeted exams where dose is matched to indication/reason for exam; i.e. extremities or head) *Use of iterative reconstruction technique DLP: 416 mGy-cm FINDINGS: OFFICE SUPPORT SPECIALIST: Nonobstructive bowel pattern. Hyperdensities overlying the ascending colon. LUNG BASES: The visualized lung bases are unremarkable. LIVER, GALLBLADDER, AND BILIARY TREE: Diffuse hypodensity to the liver. Too small to characterize hepatic hypodensities, likely cysts. No No biliary ductal dilatation is present. The gallbladder is unremarkable with no evidence of radiopaque gallstones, gallbladder wall thickening, or obvious pericholecystic inflammatory changes. PANCREAS: Unremarkable. SPLEEN: Unremarkable. ADRENAL GLANDS: Unremarkable. KIDNEYS AND URETERS: The kidneys are normal in size, shape, and attenuation. No hydronephrosis, hydroureter, or calculi seen. No perinephric stranding. BLADDER: Decompressed bladder with diffuse wall thickening. GASTROINTESTINAL TRACT: Stomach is decompressed. Nonobstructive bowel pattern. Right hemicolonic hyperdensities/ingested material. Appendix not seen with certainty. Diverticulosis with thickening and surrounding mild inflammatory changes sigmoid colon. No abscess collection. ABDOMINAL WALL: No significant hernia is appreciated. LYMPH NODES: Normal. VASCULAR: Unremarkable. PELVIC VISCERA: Prominent heterogeneous prostate. Right hemipelvic phlebolith. OSSEOUS STRUCTURES: Minimal retrolisthesis L5 on S1 with L5-S1 disc space narrowing and vacuum disc phenomenon. No suspicious osseous lesions. CT/CT abdomen pelvis w IV con IMPRESSION: Sigmoid diverticulitis. Hepatic steatosis. Fleischner guidelines were followed.
[2023-09-13 11:02] VITALS: BP 190/110; PULSE 76; RESP 18; TEMP 37.4; O2SAT 98; BMI 32.4
[2023-09-13 11:25] LABS: MANUAL DIFF FLAG NO
[2023-09-13 11:41] LABS: Basophils Percent Auto 0.5 % (0-2); Eosinophils Absolute Auto 0.3 X10*3/uL (0.0-0.4); Eosinophils Percent Auto 3.9 % (0-4); Hematocrit 46.5 % (42.0-52.0); Hemoglobin 15.6 g/dl (14.0-18.0); Imm Gran Abs Auto 0.02 X10*3/uL (0.00-0.03); Imm Gran Pct Auto 0.3 % (0.0-0.4); Lymphocytes Absolute Auto 1.8 X10*3/uL (1.2-4.9); Lymphocytes Percent Auto 23.8 % (20-40); Mean Corpuscular HGB Conc 33.5 g/dl (31.0-36.0); Mean Corpuscular Hemoglobin 32.2 pg (27.0-33.0); Mean Corpuscular Volume 96.1 fL (80.0-98.0); Mean Platelet Volume 11.2 fL (9.4-12.4); Monocytes Absolute Auto 0.6 X10*3/uL (0.1-1.2); Monocytes Percent Auto 8.7 % (2-11); Neutrophils Absolute Auto 4.6 x10*3/uL (2.0-8.3); Neutrophils Percent Auto 62.8 % (45-73); Platelet Count 233 X10*3/uL (160-400); Red Blood Count 4.84 X10*6/uL (4.60-5.80); Red Cell Distribution Width 12.2 % (11.0-16.0); White Blood Count 7.4 X10*3/uL (4.8-10.8)
[2023-09-13 11:48] LABS: Alanine Aminotransferase 25 U/L (0-40); Albumin Level 4.1 g/dL (3.5-5.0); Alkaline Phosphatase 61 U/L (39-117); Anion Gap 11 (12-20); Aspartate Amino Transferase 17 U/L (5-37); Bilirubin Direct 0.2 mg/dL (0.0-0.5); Bilirubin Total 0.4 mg/dL (0.0-1.0); Blood Urea Nitrogen 10 mg/dL (9-16); Carbon Dioxide 26 mmol/L (22-29); Chloride 107 mmol/L (96-108); Creatinine Clr Calc Pharmacy 72.4; Estimated Glomerular Filt Rate > 60; Glucose Random 94 mg/dL (60-115); Lipase 11 U/L (8-78); Potassium 4.3 mmol/L (3.3-5.1); Sodium 140 mmol/L (135-145); Total Protein 8.1 g/dL (6.5-8.0)
[2023-09-13 12:37] LABS: Magnesium 2.1 mg/dL (1.6-2.6)
[2023-09-13 12:47] VITALS: BP 205/103; PULSE 61; RESP 18; TEMP 36.8; O2SAT 100
[2023-09-13 14:25] VITALS: BP 177/123; PULSE 82; RESP 16; O2SAT 98
[2023-09-13 14:28] VITALS: BP 175/96
--- NOTE | 2023-09-13 14:30 | PC.NURSE ---
a&ox4. vss and up to date aside from being hypertensive in both UE bilaterally. pt verbalizes not taking medications x 3 days for unknown reason. 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 pt presents to the ED w/ LLQ pain/diarrhea w/ bright red bloody stools since yesterday. denies n/v. pt verbalizes 2/10 pain at this time. 20gIV placed in the right AC - labs obtained/sent to lab. no sob/wob noted. respirations even and unlabored. pt aware of plan of care at this time. call lara placed within reach.
--- NOTE | 2023-09-13 14:45 | PC.NURSE ---
urine obtained/sent to lab. pt awaiting to go to CT at this time.
--- NOTE | 2023-09-13 14:51 | PC.NURSE ---
pt to CT at this time.
[2023-09-13 15:05] LABS: Appearance Urine Clear; Color Urine Yellow; Glucose Urine UA Negative (Negative); Leukocyte Esterase Urine Negative (Negative); Nitrite Urine Negative (Negative); Urine Blood Negative (Negative); Urine Ketones Trace mg/dL (Negative); Urine Protein Negative (Neg-Trace)
[2023-09-13 15:21] VITALS: BP 155/99; PULSE 75; RESP 14; TEMP 36.4; O2SAT 99
--- NOTE | 2023-09-13 15:48 | ED_ITS ---
HPI - Abdominal Pain General Chief Complaint: Abdominal Pain Stated Complaint: Referred by dr Anali MCKEON scan Time Seen by Provider: 09/13/23 13:50 Source: patient Mode of arrival: ambulatory Limitations: no limitations History of Present Illness HPI narrative: patient states he has a prior history of diverticulitis months ago. Had lower abdominal pain and noticed blood in his stool. PCP sent him in for CT to rule out diverticultis MD elicited complaint: abdominal pain Pertinent past history: diverticulitis Related Data Previous Rx's Medication Instructions Recorded omega 2-ifu-lhs-fish oil 100 1 cap PO DAILY #30 caps 07/01/22 mg-160 mg-1,000 mg capsule (Fish Oil) fexofenadine 180 mg tablet 180 mg PO DAILY #30 tabs 07/28/22 (Felipa Allergy) amlodipine 5 mg tablet 5 mg PO DAILY #90 tabs 10/23/22 omeprazole 20 mg capsule,delayed 20 mg PO DAILY #30 caps 01/30/23 release metoprolol succinate 50 mg 50 mg PO DAILY #30 tabs 04/23/23 tablet,extended release 24 hr levofloxacin 500 mg tablet 500 mg PO DAILY 10 days #10 tabs 09/13/23 metronidazole 500 mg tablet 500 mg PO TID #30 tabs 09/13/23 Allergies Allergy/AdvReac Type Severity Reaction Status Date / Time shellfish derived Allergy Severe Anaphylaxis Verified 09/13/23 11:04 Review of Systems Review of Systems Yes all other systems are reviewed and are negative Denies Sensory deficit (Neuro) PMFSH Past Medical History Medical History PAF (paroxysmal atrial fibrillation) Palpitations Allergic rhinitis Alcohol abuse GERD (gastroesophageal reflux disease) Lumbar spondylosis Obesity (BMI 30-39.9) Vitamin D deficiency Cervical radiculopathy Right carpal tunnel syndrome Fatty liver Hypercholesterolemia Hypertension Surgical History H/O colonoscopy H/O shoulder surgery History of back surgery History of open reduction and internal fixation (ORIF) procedure Family History Family History Father No problems noted. Mother History of colostomy reversal Brother ETOH abuse Pancreatitis Myocardial infarct Brother Myocardial infarct Social History Social History Housing: House Alcohol intake: current Alcohol intake frequency: a few times a month Patient Tobacco Use Status: Former Tobacco user Quit Date: 30 years ago Tobacco use type: Cigarette Years Smoked: quit 1990 Smoked in Last 30 Days: No e-Cigarette/Vaping Use: Never Used Second Hand Smoke Exposure: No Use of substances other than those prescribed or required for medical reasons: No Advance Directives: No Current occupational status: employed Current occupation: On leave Cognitive needs: No Hearing needs: No Vision needs: No Physical Exam ED Vital Signs: Vital Signs - 24 hr 09/13/23 11:02 09/13/23 12:47 09/13/23 14:25 Temperature 99.4 F 98.3 F Pulse Rate 76 61 82 Respiratory Rate 18 18 16 Blood Pressure 190/110 H 205/103 H 177/123 H Pulse Oximetry 98 100 98 Oxygen Delivery Method Room Air Room Air Room Air 09/13/23 14:28 09/13/23 15:21 Temperature 97.6 F Pulse Rate 75 Respiratory Rate 14 Blood Pressure 175/96 H 155/99 H Pulse Oximetry 99 Oxygen Delivery Method Room Air BMI result Body Mass Index 32.4 Const General: healthy appearing Nutritional Appearance: average body habitus Orientation/consciousness: oriented to person and patient oriented x3 Limitations: no limitations HENMT Head: Yes normal to inspection Ears: external ears normal General nose exam: Normal external nose present Mouth: Normal oral and palatal mucosa present and oropharynx normal Throat: Yes posterior oropharynx normal Eyes General: appearance normal, both eyes and all related structures Neck Neck: Yes normal visual inspection Chest Chest palpation & inspection: normal inspection of the chest Resp Auscultation: clear to auscultation bilaterally Cardio Jugular venous distension: no JVD Rate: regular rate Rhythm: regular rhythm Heart sounds: S1 normal heart sound present and S2 normal heart sound present GI Other: mild lower abdominal pain General: Yes no CVA tenderness Back/Spine/Pelvis Back: no CVA tenderness Skin General skin exam: no rashes or lesions noted Neuro General: oriented to person and patient oriented x3 Cranial nerves: Yes CN's II-XII intact bilaterally Motor exam (neuro): 5/5 motor strength present throughout Sensory Exam: No Sensory deficit (Neuro) Extrem General: Yes normal to inspection Psych Appearance: grossly normal Course Reevaluation(s) Reevaluation #1: CT showed subtle signs of diverticulitis so will dc home on abx Time: 16:49 Medical Decision Making Differential Diagnosis Differential Diagnoses: The differential diagnosis associated with the presentation includes (diverticulitis, hemorrhoids, abdominal pain) Admission/Observation Consideration of admission/observation: Escalation of care including admission/observation considered (upon arrival admission was considered) Lab Data MDM Lab Attestation statement: I reviewed the patient's lab results. 09/13/23 11:20 09/13/23 11:20 Labs: Lab Results 09/13/23 09/13/23 Range/Units 11:20 14:44 WBC 7.4 (4.8-10.8) X10*3/uL RBC 4.84 (4.60-5.80) X10*6/uL Hgb 15.6 (14.0-18.0) g/dl Hct 46.5 (42.0-52.0) % MCV 96.1 (80.0-98.0) fL MCH 32.2 (27.0-33.0) pg MCHC 33.5 (31.0-36.0) g/dl RDW 12.2 (11.0-16.0) % Plt Count 233 (160-400) X10*3/uL MPV 11.2 (9.4-12.4) fL Immature Gran % (Auto) 0.3 (0.0-0.4) % Neut % (Auto) 62.8 (45-73) % Lymph % (Auto) 23.8 (20-40) % [place] % (Auto) 8.7 (2-11) % Eos % (Auto) 3.9 (0-4) % Baso % (Auto) 0.5 (0-2) % Lymph # (Auto) 1.8 (1.2-4.9) X10*3/uL [place] # (Auto) 0.6 (0.1-1.2) X10*3/uL Eos # (Auto) 0.3 (0.0-0.4) X10*3/uL Baso # (Auto) 0.0 (0.0-0.2) X10*3/uL Abs Immat Gran (auto) 0.02 (0.00-0.03) X10*3/uL Absolute Neuts (auto) 4.6 (2.0-8.3) x10*3/uL Absolute Nucleated RBC 0.000 (0.0-0.012) X10*3/uL Nucleated RBC % (auto) 0.0 (0.0-0.2) /100WBC Sodium 140 (135-145) mmol/L Potassium 4.3 (3.3-5.1) mmol/L Chloride 107 (96-108) mmol/L Carbon Dioxide 26 (22-29) mmol/L Anion Gap 11 L (12-20) BUN 10 (9-16) mg/dL Creatinine 1.07 (0.5-1.4) mg/dL Estim Creat Clear Calc 72.4 Estimated GFR > 60 Random Glucose 94 (60-115) mg/dL Calcium 10.0 (8.4-10.2) mg/dL Magnesium 2.1 (1.6-2.6) mg/dL Total Bilirubin 0.4 (0.0-1.0) mg/dL Direct Bilirubin 0.2 (0.0-0.5) mg/dL AST 17 (5-37) U/L ALT 25 (0-40) U/L Alkaline Phosphatase 61 (39-117) U/L Total Protein 8.1 H (6.5-8.0) g/dL Albumin 4.1 (3.5-5.0) g/dL Lipase 11 (8-78) U/L Urine Color Yellow Urine Appearance Clear Urine pH 6.0 (5.0-9.0) Ur Specific Jackson 1.020 (1.005-1.025) Urine Protein Negative (Neg-Trace) mg/dL Urine Glucose (UA) Negative (Negative) mg/dL Urine Ketones Trace (Negative) mg/dL Urine Blood Negative (Negative) Urine Nitrite Negative (Negative) Ur Leukocyte Esterase Negative (Negative) Independent Interpretation I performed an independent interpretation of an: CT Scan (by my reading no diverticulitis seen) Radiology Impression Discussion of test interpretation with radiology: I have reviewed the radiologist's reading. (they feel that there is some inflammation will treat for diverticulitis) Chronic Conditions Patient?s care impacted by: Other (diverticulosis) Discharge Plan Discharge Clinical Impression: Diverticulitis Patient Disposition: Home, Self-Care Instructions: Diverticulitis (ED) Prescriptions: New levofloxacin 500 mg tablet 500 mg PO DAILY 10 Days Qty: 10 0RF metronidazole 500 mg tablet 500 mg PO TID Qty: 30 0RF No Action fexofenadine [Felipa Allergy] 180 mg tablet 180 mg PO DAILY Qty: 30 0RF amlodipine 5 mg tablet 5 mg PO DAILY Qty: 90 1RF metoprolol succinate 50 mg tablet extended release 24 hr 50 mg PO DAILY Qty: 30 2RF omeprazole 20 mg capsule,delayed release(DR/EC) 20 mg PO DAILY Qty: 30 5RF Fish Oil 100-160-1,000 mg capsule 1 cap PO DAILY Qty: 30 0RF Referrals: [facility] [Primary Care Provider] - 5 days
[2023-09-13] MEDS: metroNIDAZOLE 500 MG TABLET PO (17:24)
[2023-09-13] MEDS: levoFLOXacin 500 MG TABLET PO (17:24)
--- NOTE | 2023-09-13 17:29 | PC.NURSE ---
medication administered per provider order.
== END 2023-09-13 17:30 | disposition home or self-care (01) ==
PROVIDERS: Physician Assistant; Emergency Provider Emergency Medicine
DX: K57.32 Diverticulitis of large intestine without perforation or abscess without bleeding (principal); Z87.891 Personal history of nicotine dependence; Z79.899 Other long term (current) drug therapy
CPT/HCPCS: 36415; 74177; 80048; 80076; 81003; 83690; 83735; 85025; 99284

== ENCOUNTER 2023-11-10 10:26 | Outpatient (REF) | payer MEDICAID, SELFPAY ==
[2023-11-10 11:36] LABS: MANUAL DIFF FLAG NO
[2023-11-10 11:43] LABS: Basophils Absolute Auto 0.1 X10*3/uL (0.0-0.2); Basophils Percent Auto 0.8 % (0-2); Eosinophils Absolute Auto 0.4 X10*3/uL (0.0-0.4); Eosinophils Percent Auto 6.3 % (0-4); Hematocrit 47.5 % (42.0-52.0); Hemoglobin 16.1 g/dl (14.0-18.0); Imm Gran Abs Auto 0.01 X10*3/uL (0.00-0.03); Imm Gran Pct Auto 0.2 % (0.0-0.4); Lymphocytes Absolute Auto 1.9 X10*3/uL (1.2-4.9); Mean Corpuscular HGB Conc 33.9 g/dl (31.0-36.0); Mean Corpuscular Hemoglobin 32.4 pg (27.0-33.0); Mean Corpuscular Volume 95.6 fL (80.0-98.0); Mean Platelet Volume 11.5 fL (9.4-12.4); Monocytes Absolute Auto 0.6 X10*3/uL (0.1-1.2); Monocytes Percent Auto 10.3 % (2-11); Neutrophils Absolute Auto 3.2 x10*3/uL (2.0-8.3); Neutrophils Percent Auto 51.4 % (45-73); Platelet Count 219 X10*3/uL (160-400); Red Blood Count 4.97 X10*6/uL (4.60-5.80); Red Cell Distribution Width 12.3 % (11.0-16.0); White Blood Count 6.2 X10*3/uL (4.8-10.8)
[2023-11-10 12:09] LABS: Alanine Aminotransferase 26 U/L (0-40); Albumin Level 4.3 g/dL (3.5-5.0); Alkaline Phosphatase 68 U/L (39-117); Anion Gap 12 (12-20); Aspartate Amino Transferase 19 U/L (5-37); Bilirubin Total 0.5 mg/dL (0.0-1.0); Blood Urea Nitrogen 13 mg/dL (9-16); Calcium 9.6 mg/dL (8.4-10.2); Carbon Dioxide 28 mmol/L (22-29); Chloride 105 mmol/L (96-108); Cholesterol 182 mg/dL (<200); Estimated Glomerular Filt Rate > 60; Glucose Random 99 mg/dL (60-115); HDL Cholesterol 45 mg/dL (>40); LDL Cholesterol Calculated 120 mg/dL (<100); Sodium 140 mmol/L (135-145); Triglycerides 85 mg/dL (<150)
== END 2023-11-10 10:27 | disposition home or self-care (01) ==
LOC: HO.HHCL 10:26
PROVIDERS: Visit Provider Internal Medicine Geriatric Medicine
DX: I10 Essential (primary) hypertension (principal)
CPT/HCPCS: 36415; 80053; 80061; 85025

== ENCOUNTER 2023-11-11 09:14 | Outpatient (REF) | payer MEDICAID, SELFPAY | END 2023-11-11 09:15 | disposition home or self-care (01) | LOC: HO.LNP 09:14 | PROVIDERS: Visit Provider Internal Medicine Gastroenterology | DX: A04.8 Other specified bacterial intestinal infections (principal) | CPT/HCPCS: 87338 ==

== ENCOUNTER 2024-01-05 12:31 | Outpatient (REF) | payer MEDICAID, SELFPAY ==
--- NOTE | ~2024-01-05 | XR_ITS ---
EXAMINATION: XR CHEST 2 VIEW CLINICAL INFORMATION: Dyspnea on exertion, pleuritic chest pain COMPARISON: Chest x-ray of 07/02/[address] of the chest dated 01/02/2023 TECHNIQUE: PA and lateral views of the chest obtained. FINDINGS: The lungs are clear. There are no pleural effusions. The cardiomediastinal silhouette is stable, again noting widening of the mediastinum compatible with known thoracic aortic aneurysm.. XR/XR chest 2V IMPRESSION: No acute cardiopulmonary disease.
== END 2024-01-05 12:32 | disposition home or self-care (01) ==
LOC: HO.HHCX 12:31
PROVIDERS: Visit Provider Internal Medicine Geriatric Medicine
DX: R07.81 Pleurodynia (principal)
CPT/HCPCS: 71046

== ENCOUNTER 2024-05-06 12:16 | Outpatient (REF) | payer MEDICAID, SELFPAY ==
[2024-05-07 08:28] LABS: HIV AB/AG Nonreactive (Nonreactive); HIV Num 1 0.05 S/CO (0.00-0.99); ~HepC Num1 0.09 S/CO (0.00-0.79); ~Hepatitis C Antibody Nonreactive (Nonreactive)
== END 2024-05-06 12:17 | disposition home or self-care (01) ==
LOC: HO.HHCL 12:16
PROVIDERS: Visit Provider Internal Medicine Geriatric Medicine
DX: Z11.59 Encounter for screening for other viral diseases (principal); Z11.4 Encounter for screening for human immunodeficiency virus [HIV]
CPT/HCPCS: 36415; 86803; 87389

== ENCOUNTER 2024-05-09 08:15 | Outpatient (REF) | payer MEDICAID, SELFPAY ==
[2024-05-09 11:28] LABS: MANUAL DIFF FLAG NO
[2024-05-09 11:49] LABS: Basophils Absolute Auto 0.1 X10*3/uL (0.0-0.2); Basophils Percent Auto 0.8 % (0-2); Eosinophils Absolute Auto 0.4 X10*3/uL (0.0-0.4); Eosinophils Percent Auto 6.3 % (0-4); Hematocrit 45.2 % (42.0-52.0); Hemoglobin 15.3 g/dl (14.0-18.0); Imm Gran Abs Auto 0.01 X10*3/uL (0.00-0.03); Imm Gran Pct Auto 0.2 % (0.0-0.4); Lymphocytes Absolute Auto 1.8 X10*3/uL (1.2-4.9); Lymphocytes Percent Auto 28.8 % (20-40); Mean Corpuscular HGB Conc 33.8 g/dl (31.0-36.0); Mean Corpuscular Hemoglobin 32.7 pg (27.0-33.0); Mean Corpuscular Volume 96.6 fL (80.0-98.0); Mean Platelet Volume 11.7 fL (9.4-12.4); Monocytes Absolute Auto 0.6 X10*3/uL (0.1-1.2); Monocytes Percent Auto 9.5 % (2-11); Neutrophils Absolute Auto 3.4 x10*3/uL (2.0-8.3); Neutrophils Percent Auto 54.4 % (45-73); Platelet Count 220 X10*3/uL (160-400); Red Blood Count 4.68 X10*6/uL (4.60-5.80); Red Cell Distribution Width 12.4 % (11.0-16.0); White Blood Count 6.2 X10*3/uL (4.8-10.8)
[2024-05-09 11:55] LABS: Estimated Average Glucose 103 mg/dL; Hemoglobin A1c % 5.2 % (<6.0)
[2024-05-09 12:12] LABS: Alanine Aminotransferase 24 U/L (0-40); Albumin Level 4.1 g/dL (3.5-5.0); Alkaline Phosphatase 63 U/L (39-117); Anion Gap 12 (12-20); Aspartate Amino Transferase 18 U/L (5-37); Bilirubin Total 0.6 mg/dL (0.0-1.0); Blood Urea Nitrogen 13 mg/dL (9-16); Calcium 9.5 mg/dL (8.4-10.2); Carbon Dioxide 25 mmol/L (22-29); Chloride 108 mmol/L (96-108); Cholesterol 180 mg/dL (<200); Estimated Glomerular Filt Rate > 60; Glucose Random 97 mg/dL (60-115); HDL Cholesterol 45 mg/dL (>40); LDL Cholesterol Calculated 111 mg/dL (<100); Potassium 4.3 mmol/L (3.3-5.1); Sodium 141 mmol/L (135-145); Total Protein 7.6 g/dL (6.5-8.0); Triglycerides 120 mg/dL (<150)
[2024-05-09 12:17] LABS: Free T4 (Free Thyroxine) 0.87 ng/dL (0.71-1.85); Thyroid Stimulating Hormone 2.47 uIU/mL (0.32-4.0)
[2024-05-09 12:27] LABS: Folate 12.8 ng/mL (> or = 4.0); Prostate Specific Antigen Scr 0.36 ng/mL (<0.05-4.0); Vitamin B12 577 pg/mL (200-900)
== END 2024-05-09 08:16 | disposition home or self-care (01) ==
LOC: HO.HHCL 08:15
PROVIDERS: Visit Provider Internal Medicine
DX: E78.00 Pure hypercholesterolemia, unspecified (principal)
CPT/HCPCS: 36415; 80053; 80061; 82607; 82746; 83036; 84153; 84439; 84443; 85025

== ENCOUNTER 2024-12-25 07:26 | Outpatient (REF) | payer MEDICAID, SELFPAY ==
--- OUTSIDE RECORDS SUMMARY | 2024-12-25 07:29 | XMS_ITS | Encounter Summary ---
Author Organization [employer] Address [address] [facility] [address] [facility] [address] [place] [address] Care Team Providers Care Medical Management Trainer Name Role Phone Name, Robbie PIERCE Primary Care Provider [phone] Encounter Details Date Type Department Care Team (Latest Contact Info) Description 12/24/2024 Travel Social History Tobacco Use Types Packs/Day Years Used Date Smoking Tobacco: Former Cigarettes Passive Smoke Exposure: Past Smokeless Tobacco: Never Alcohol Use Standard Drinks/Week Comments Yes 0 (1 standard drink = 0.6 oz pur e alcohol) socially Depression Answer Date Recorded Patient Health Questionnaire-9 Score 1 12/24/2024 Patient Health Questionnaire-9 Score 1 12/24/2024 Last PHQ-9: Questionnaire Data Not on file 0 12/24/2024 Housing Stability Answer Date Recorded What is your housing situation today? I have semaj csaey 12/24/[address] you li ve. Do you have problems with any of the following? None of the above 12/24/2024 Food Insecurity Answer Date Recorded Within the past 12 months, y ou worried that your food would run out before you got money to buy more: Never True 12/24/2024 Within the past 12 months,th e food you bought just didn't last and you didn't have enough money to get more: Never True 01/2025 Transportation Answer Date Recorded In the past 12 months, has l ack of transportation kept you from medical appts, meetings, work or from getting things needed for daily living? No 12/24/2024 Utilities Answer Date Recorded In the past 12 months, has t he electric, gas, oil or water company threatened to shut off services in your home? No 12/24/2024 Depression Answer Date Recorded Patient Health Questionnaire-2 Score 0 12/24/2024 Internet Access Answer Date Recorded Internet Access Q1 Yes 12/24/2024 Internet Access Q2 Not on file 12/24/2024 Sex and Gender Information Value Date Recorded Sex Assigned at Male 09/13/2023 9:21 AM EST Legal Sex Male 9:20 AM EST Gender Identity Male 09/13/2023 9:21 AM EST Sexual Orientation Don't know 09/13/2023 9: 21 AM EST documented as of this encounter Plan of Treatment Upcoming Encounters Date Type Department Care Team (Late st Contact Info) Description 01/02/2025 2:30 PM EDT Telemedicine [facility] [address] [place] [phone] 04/14/2025 1:30 PM EDT Office Visit [facility] [address] [place] [phone] NameRobbie MD [address] [place] [phone] documented as of this encounter Visit Diagnoses Not on filedocumented in this encounter Additional Health Concerns Assessment Noted Time PHQ-9 Depression Total Score: 1 12/25/19 25 4:51 PM EDT documented as of this encounter Care Teams Medical Management Trainer Relationship Specialty Start Date End Date NameRobbie MD [address] [place] [phone] PCP - General Internal Medicine 11/10/23 documented as of this encounter
--- OUTSIDE RECORDS SUMMARY | 2024-12-25 07:29 | XMS_ITS ---
Author Organization [facility] Address [address] [place] [phone] Care Team Providers Care Lodge Sales Associate Name Role Phone Miguel Umanzor MD, Andrew Primary Care Provide r Unavailable Kenney England Jr REASON FOR VISIT Patient presents today for H pylori Encounters Encounter Location Date Provider Diagnosis [facility] [address] [place] [phone] 10/30/2024 Kenney England Jr Plan Of Treatment No Information Progress Notes * FRANCIE GORDON SrDOB:12/1964 (59 yo M)Acc No.[id number]:10/30/2024 Progress Notes Patient:?FRANCIE GORDON Provider:?Kenney England MD :1965???Age:59 Y???Sex:Male Peyman e:10/30/2024 Address:[address] [facility] Pcp:Andrew burris MD Subjective: * Chief Complaints: * ???1. Patient presents today for H pylori. * Medical History:? Objective: * Vitals:? Assessment: Plan: * Treatment: * * The named appointment provid er may or may not be the originator of this progress note, and it is not deemed complete until electronically signed by the appointment provider. Sign off status: Pending * Provider:?Kenney England MD Date:?0 10/30/2024 Generated for Tank buckley/Carlos Eduardo/Delbertitting on:?12/25/2024 07:28 AM EDT
--- OUTSIDE RECORDS SUMMARY | 2024-12-25 07:29 | XMS_ITS | Patient Health Record ---
Author Organization [facility] Address [address] [place] [address] Care Team Providers Care Street Contractor Name Role Phone Miguel Umanzor MD, Andrew Primary Care Provide r Unavailable Kenney Trevino Jr Unavailable Allergies Allergen (clinical drug ingredient) Drug/Non Drug Allergy documented on EMR Reaction Allergy Type Onset Date Status Shellfish (FN) shell fish (uncoded) Unknown Allergy Active Reason For Referral Referring Provider First Name Andrew Referring Provider Last Name Miguel fox Referring Provider Speciality Internal M edicine Referred Organization [facility] Referred Provider Kenney Trevino Jr Referred Address [address] [facility], [place],[address], Referred Provider Specialty Gastroentero logy General Notes Odalis Fernandez 2024 04:21:13 PM >requested a [facility] referral from [facility] for visit with dr trevino on 10-30-2024 Referral Priority Routine Medications Medication SIG (Take, Route, Frequency, Duration) Notes Start Date End Date Status Omeprazole 20 MG 1 capsule Orally Onc e a day for 30 day(s) 07/05/2013 Active Metoprolol Succinate ER 50 MG Oral for 90 Active amLODIPine Besylate 5 MG Oral for 90 Active Omeprazole 20 MG 1 Orally Twice a day for 14 days 07/27/2023 Active Amoxicillin 500 MG 2 Orally Twice a day for 14 days 07/27/2023 Active Clarithromycin 500 MG 1 tablet Orally ev jessenia 12 hrs for 14 days 07/27/2023 Active Immunizations Vaccine Route Administration Date Status Comme nts Influenza Unknown 06/13/2023 Administered Social History Alcohol Screen Question Answer Notes Did you have a drink contain ing alcohol in the past year? Yes How often did you have a dri nk containing alcohol in the past year? 2 to 3 times a week (3 points) How many drinks did you have on a typical day when you were drinking in the past year? 1 or 2 drinks (0 point) How often did you have 6 or more drinks on one occasion in the past year? Never (0 point) Points 3 Interpretation Negative Section Notes: wine with dinner or a beer a t [employer] Occasional alcohol use Problems Problem Type SNOMED Code ICD Code Onset Dates Problem Status W/U Status Risk Notes Problem 205712270 Colon cancer screening (Z12.11) Active confirmed Problem 092606975 Diverticulitis (K57.92) Active confirmed Problem 145140708 Gastroesophageal reflux disease without esophagitis (K21.9) Active confirmed Problem Gastroesophageal reflux disease (466126013) GERD (gastroesophageal reflux disease) (K21.9) Active confirmed Problem 598427428 H. pylori infection (A04.8) Active confirmed Encounters Encounter Location Date Provider Diagnosis [facility] [address] [place] [address] 10/29/2024 Kenney Trevino Jr Plan Of Treatment Pending Test Test Name Order Date H PYLORI AG, STOOL 10/30/2023 Future Test Test Name Order Date COLONOSCOPY 07/05/2013 UPPER GI ENDOSCOPY 05/25/2023 COLONOSCOPY 05/25/2023 Insurance Providers Payer Name Payer Address Payer Phone Subscriber Number Group Number Insured Name Patient Relationship to Insured Coverage Start Date Coverage End Date MEDICAID OF [facility] [address] [place] [phone] [id number] FRANCIE GORDON Self - patient is the insured Medical (General) History Medical History History ICD Code Hypertension Hyperlipidemia Seasonal allergic rhinitis Reactive airway disease Thoracic aortic aneurysm Gastroesophageal reflux dise ase, EGD 07/13, H. pylori infection, two-week therapy with OAC Elevated BMI Vitamin D deficiency Fatty liver Colonoscopy 07/13, normal, five-year fol lowup family history of colon polyps Surgical History Surgery Date(Month/Year) Left rotator cuff repair Lumbar disc surgery
--- OUTSIDE RECORDS SUMMARY | 2024-12-25 07:29 | XMS_ITS ---
Author Organization [facility] Address [address] [place] [phone] Care Team Providers Care Machine Shop Inspector Name Role Phone Miguel Umanzor MD, Andrew Primary Care Provide r Jono England Jr, Kenney De La Cruz [phone] REASON FOR VISIT labs Encounters Encounter Location Date Provider Diagnosis [facility] [address] [place] [phone] 11/14/2023 Kenney England Jr Plan Of Treatment No Information Progress Notes * FRANCIE GORDON SrDOB:12/1964 (58 yo M)Acc No.[id number]:11/14/2023 Patient:?FRANCIE GORDON :1965???Age:58 Y???Sex:Male Address:[address] [place] [address], [phone] * true * Date:? Generated for Tank buckley/Carlos Eduardo/eTransmitting on:?12/25/2024 07:28 AM EDT
--- OUTSIDE RECORDS SUMMARY | 2024-12-25 07:29 | XMS_ITS | Encounter Summary ---
Author Organization [employer] Address [address] [facility] [address] [place] [address] Care Team Providers Care Timber Sizer Name Role Phone Name, Robbie PIERCE Primary Care Provider [phone] Reason for Visit * Reason Onset Date Comments Chart Prep 12/23/2024 Encounter Details Date Type Department Care Team (Late st Contact Info) Description 12/23/2024 Telephone [facility] [address] [place] [address] Zuly Hopkins MA Chart Prep Social History Tobacco Use Types Packs/Day Years [...] your housing situation today? I have semaj casey 12/24/[address] you li [...] AM EST documented as of this encounter Miscellaneous Notes * Telephone Encounter - Zuly Hopkins MA - 12/23/2024 10:52 AM EDT Chart Prep Labs: not applicable Images: not applicable Referrals: not applicable Vaccines due: Covid, Hep B, RSV, and Zoster Screenings: not applicable Overdue care gaps: SBIRT, SDOH, PHQ-9, JOSE-7, Disability screen, and Tobacco documented in this encounter Plan of Treatment Upcoming Encounters Date Type Department Care Team (Late st Contact Info) Description 01/02/2025 2:30 PM EDT Telemedicine [facility] [address] [place] [phone] 04/14/2025 1:30 PM EDT Office Visit [facility] [address] [place] [phone] Robbie Linn MD [address] [place] [phone] documented as of this encounter Visit Diagnoses Not on filedocumented in this encounter Additional Health Concerns Assessment Noted Time PHQ-9 Depression Total Score: 0 11/10/19 9:32 AM EDT documented as of this encounter Care Teams Timber Sizer Relationship Specialty Start Date End Date Robbie Linn MD [address] [place] [phone] PCP - General Internal Medicine 11/10/23 documented as of this encounter
--- OUTSIDE RECORDS SUMMARY | 2024-12-25 07:29 | XMS_ITS | Encounter Summary ---
Author Organization [employer] Address [address] [facility] [address] [place] [address] Care Team Providers Care Inspector Machine Cut Glass Name Role Phone Name, Robbie PIERCE Primary Care Provider [phone] Encounter Details Date Type Department Care Team (Latest Contact Info) Description 12/23/2024 Travel Social History Tobacco Use Types Packs/Day [...] Info) Description 01/02/2025 2:30 PM EDT Telemedicine [facility] [address] [place] [phone] 04/14/2025 1:30 PM EDT Office Visit [facility] [address] [place] [phone] NameRobbie MD [address] [place] [phone] documented as of this encounter Visit Diagnoses Not on filedocumented in this encounter Additional Health Concerns Assessment Noted Time PHQ-9 Depression Total Score: 0 11/10/19 9:32 AM EDT documented as of this encounter Care Teams Inspector Machine Cut Glass Relationship Specialty Start Date End Date NameRobbie MD [address] [place] [phone] PCP - General Internal Medicine 11/10/23 documented as of this encounter
--- OUTSIDE RECORDS SUMMARY | 2024-12-25 07:29 | XMS_ITS | Encounter Summary ---
Author Organization [employer] Address [address] [facility] [address] [place] [address] Care Team Providers Care Hammer Adjuster Name Role Phone Name, Robbie PIERCE Primary Care Provider [phone] Reason for Visit * Reason Comments Hypertension Encounter Details Date Type Department Care Team ([facility] Contact Info) Description 12/24/2024 4:00 PM EDT Office Visit [facility] [address], [place] [phone] Name, MD Robbie [address] [place] [address] Hypertension, unspecified type (Primary Dx); Paroxysmal A-fib (CMS/HCC); Mild intermittent asthma without complication Social History Tobacco Use Types Packs/Day Years Used Date Smoking Tobacco: Former Cigarettes Passive Smoke Exposure: Past Smokeless Tobacco: Never Tobacco Cessation:Counseling Given: Not Answered Alcohol Use Standard Drinks/Week Comments Yes 0 [...] AM EST documented as of this encounter Last Filed Vital Signs Vital Sign Reading Time Taken Comments Blood Pressure 146/97 12/24/2024 4:32 PM EDT Pulse 77 12/24/2024 4:17 PM EDT Temperature 37 ??C (98.6 ??F) 12/24/2024 4:17 PM EDT Respiratory Rate 12 12/24/2024 4:17 PM EDT Oxygen Saturation 98% 12/24/2024 4:17 PM EDT Inhaled Oxygen Concentration - - Weight 85.2 kg (187 lb 12.8 oz) 12/24/2024 4:17 PM EDT Height 162.6 cm (5' 4 ) 12/24/2024 4:17 PM EDT Body Mass Index 32.24 12/24/2024 4:17 PM EDT documented in this encounter Progress Notes * Robbie Linn, - 12/24/2024 4:00 PM EDT Subjective Patient ID: Paco Oglesby is a 59 y.o. male who presents for Hypertension. Patient comes for a follow-up visit and is asymptomatic. Blood pressure is very high. He is currently using only amlodipine. He stopped using his metoprolol because he ran out of refills. Metoprolol was originally prescribed by cardiology at [facility] because of a history of PVCs and Holter suggestive ofpossible paroxysmal A-fib. He was not recommended anticoagulation. Patient had a good exercise tolerance. He does yard work without any difficulties. No chest pains, no palpitations, no orthopnea, nolower extremity edema. He denies significant shortness of breath. He occasionally has some cough and mild dyspnea relieved by the use of albuterol. He has been using albuterol once or twice a day during the spring. Review of Systems Constitutional: Negative for chills, fatigue and fever. HENT: Negative for sore throat. Respiratory: Positive for cough. Negative for chest tightness and shortness of breath. Cardiovascular: Negative for chest pain, palpitations and leg swelling. Gastrointestinal: Negative for abdominal pain and blood in stool. Visit Vitals BP (!) 146/97 Pulse 77 Temp 98.6 ??F (37 ??C) (Temporal) Resp 12 Ht 5' 4 (1.626 m) Wt 187 lb 12.8 oz (85.2 kg) SpO2 98% BMI 32.24 kg/m?? Smoking Status Former BSA 1.96 m?? Objective Physical Exam Constitutional: Appearance: Normal appearance. Cardiovascular: Rate and Rhythm: Normal rate and regular rhythm. Heart sounds: No murmur heard. Pulmonary: Effort: Pulmonary effort is normal. No respiratory distress. Breath sounds: No wheezing, rhonchi or rales. Abdominal: Palpations: Abdomen is soft. Tenderness: There is no abdominal tenderness. Musculoskeletal: Right lower leg: No edema. Left lower leg: No edema. Neurological: Mental Status: He is alert. Assessment/Plan Diagnoses and all orders for this visit: Hypertension, unspecified type Comments: I will restart his metoprolol. Discontinue amlodipine. Start losartan/HCTZ. I prescribed the patient a blood pressure monitor for home use. I recommended to start checking blood pressure at home and I will give him a televisit with the nurses in a couple of weeks for blood pressure recheck. Check fasting blood work listed below. Orders: - Comprehensive Metabolic Panel; Future - Lipid Panel, Standard; Future Paroxysmal A-fib (CMS/HCC) Comments: Patient used to follow with [facility] cardiology. He used to have frequent palpitations. He had a 3-day Holter back in 2022 that showed frequent sinus tachycardia, frequent PVCs, single 18 beat run of possible atrial fibrillation. He did not have any symptoms assocated wiht the PVCs. I did not recommend anticoagulation. I will restart his metoprolol and he is recommended to avoid alcohol. Mild intermittent asthma without complication Comments: Patient has symptoms of postnasal drip and has been using his albuterol more often during the spring. I will start him on Arnuity for asthma prevention. Continue rescue albuterol. Other orders - Blood Pressure kit; Use once a day - losartan-hydroCHLOROthiazide (Hyzaar) 50-12.5 MG tablet; Take 1 tablet by mouth Once per day. - metoprolol succinate XL (Toprol XL) 25 MG 24 hr tablet; Take 1 tablet (25 mg) by mouth Once per day. Do not crush or chew. - fluticasone furoate (Arnuity Ellipta) 100 MCG/ACT inhaler; Inhale 1 puff Once per day. Rinse mouth with water after use to reduce aftertaste and incidence of candidiasis. Do not swallow. documented in this encounter Plan of Treatment Upcoming Encounters Date Type Department Care Team (Late st Contact Info) Description 01/02/2025 2:30 PM EDT Telemedicine [facility] [address] [place] [id number] 04/14/2025 1:30 PM EDT Office Visit [facility] [address] [place] [phone] Name, MD Robbie [address] [place] [phone] Scheduled Orders Name Type Priority Associated Diagnoses Orde r Schedule Comprehensive Metabolic Panel Lab Routine Hypertension, unspecified type Expected: 12/24/2024 (Approximate), Expires: 12/24/2025 Lipid Panel, Standard Lab Routine Hypertension, unspecified type Expected: 12/24/2024 (Approximate), Expires: 12/24/2025 documented as of this encounter Visit Diagnoses Diagnosis Hypertension, unspecified type- Primary Paroxysmal A-fib (CMS/HCC) Mild intermittent asthma without complication documented in this encounter Additional Health Concerns Assessment Noted Time PHQ-9 Depression Total Score: 1 12/25/19 25 4:51 PM EDT documented as of this encounter Care Teams Hammer Adjuster Relationship Specialty Start Date End Date Name, MD Robbie [address] [place] [address] PCP - General Internal Medicine 11/10/23 documented as of this encounter
--- OUTSIDE RECORDS SUMMARY | 2024-12-25 07:29 | XMS_ITS ---
Author Organization [facility] Address [address] [place] [phone] Care Team Providers Care Sole Edge Inker Machine Name Role Phone Miguel Umanzor MD, Andrew Primary Care Provide r Unavailable Kenney England Jr [phone] REASON FOR VISIT cancel appt Encounters Encounter Location Date Provider Diagnosis [facility] [address] [place] [phone] 10/29/2024 Kenney England Jr Plan Of Treatment No Information Progress Notes * FRANCIE GORDON SrDOB:12/1964 (59 yo M)Acc No.[id number]:10/29/2024 Patient:?MARY JANE GORDONEDO Yaneli das :1965???Age:59 Y???Sex:Male Address:[facility] [place], [address] * true * Date:? Generated for Osmanyi marcio/Carlos Eduardo/eTransmitting on:?12/25/2024 07:29 AM EDT
[2024-12-25 08:33] LABS: Albumin Level 4.2 g/dL (3.5-5.0); Alkaline Phosphatase 61 U/L (39-117); Anion Gap 11 (12-20); Aspartate Amino Transferase 24 U/L (5-37); Bilirubin Total 0.6 mg/dL (0.0-1.0); Blood Urea Nitrogen 12 mg/dL (9-16); Calcium 8.7 mg/dL (8.4-10.2); Carbon Dioxide 23 mmol/L (22-29); Chloride 109 mmol/L (96-108); Cholesterol 187 mg/dL (<200); Estimated Glomerular Filt Rate > 60; Glucose Random 112 mg/dL (60-115); HDL Cholesterol 46 mg/dL (>40); LDL Cholesterol Calculated 126 mg/dL (<100); Potassium 3.9 mmol/L (3.3-5.1); Sodium 139 mmol/L (135-145); Total Protein 7.6 g/dL (6.5-8.0); Triglycerides 75 mg/dL (<150)
[2024-12-25 08:36] LABS: Alanine Aminotransferase 30 U/L (0-40)
== END 2024-12-25 07:27 | disposition home or self-care (01) ==
LOC: HO.LAB 07:26
PROVIDERS: PCP Internal Medicine Geriatric Medicine; Visit Provider Internal Medicine Geriatric Medicine
DX: I10 Essential (primary) hypertension (principal)
CPT/HCPCS: 36415; 80053; 80061

== ENCOUNTER 2024-12-26 13:47 | Emergency (ER) | payer MEDICAID, SELFPAY ==
--- NOTE | ~2024-12-26 | XR_ITS ---
EXAMINATION: XR RIBS, RIGHT CLINICAL INFORMATION: fall, pain with inspiration COMPARISON: Chest radiograph 01/05/2024. CT angiogram chest 11/02/2022. TECHNIQUE: PA view of the chest, and 3 views of the right ribs were obtained. FINDINGS: The cardiac silhouette is normal in size. There is prominence of the aortic root, consistent with the known ascending aortic aneurysm. The hilar silhouettes appear normal. The mediastinal silhouettes are otherwise normal. The lungs are clear bilaterally. There is no pneumothorax or effusion. Osseous structures are unremarkable. Ribs are intact. No fractures are identified. XR/XR ribs RT min 3V w CXR1V IMPRESSION: 1. No acute findings of the ribs or lungs. 2. Prominence of the aortic root in keeping with the known thoracic aortic aneurysm. Electronically signed by: Rigoberto Mccall MD 12/26/2024 02:37 PM EDT
--- NOTE | ~2024-12-26 | XR_ITS ---
EXAMINATION: XR SHOULDER, RIGHT CLINICAL INFORMATION: fall, pain COMPARISON: None available. TECHNIQUE: Three views of the right shoulder. FINDINGS: Normal bone mineralization. No fracture, dislocation, or suspicious bone lesion. Normal alignment. The glenohumeral joint demonstrates mild to moderate osteoarthrosis with mild undersurface marginal spurring. The AC joint demonstrates mild to moderate osteoarthrosis with mild undersurface and superior surface spurring. There is a type II acromion. No there is a tiny subacromial spur. The subacromial space is grossly preserved. Remainder of the soft tissue and bony structures appear normal. XR/XR shoulder RT min 2V IMPRESSION: 1. No acute bony abnormalities of the right shoulder. 2. Mild to moderate osteoarthrosis of the glenohumeral joint and AC joint. Electronically signed by: Rigoberto Mccall MD 12/26/2024 02:33 PM EDT
--- NOTE | ~2024-12-26 | CT_ITS ---
CLINICAL HISTORY: pain, injury CT right shoulder without contrast Comparison: CR/SR - XR SHOULDER RT MIN 2V - 12/26/24 14:26 EDT Findings: No fracture or dislocation. No osseous lesion. Moderate degenerative change involving the acromioclavicular and glenohumeral joints. There is no joint effusion. There is no fluid collection. The muscles are normal in attenuation and bulk. Unremarkable limited evaluation of the vasculature. Impression: No acute findings. Moderate degenerative change. This document has been electronically signed by: Miryam Jain MD on 12/26/2024 16:49:37
[2024-12-26 13:55] VITALS: BP 158/104; PULSE 93; RESP 18; TEMP 36.4; O2SAT 99; BMI 31.9
--- NOTE | 2024-12-26 14:04 | ED_ITS ---
HPI - General Adult General Chief complaint: Fall Stated complaint: Shoulder injury - fell off ladder Time Seen by Provider: 12/26/24 15:08 Source: patient and family (patient's ) Mode of arrival: ambulatory Limitations: no limitations History of Present Illness ED Provider: Marianne Peacock PA-C HPI narrative: Patient is a 59 year old assigned male at with a history of HTN and atrial fib not on anti coagulation therapy, presenting to the emergency department today with right shoulder pain and rib pain after a fall. Patient states that he fell approximately 3 feet off of 3 steps of a small ladder and landed on his right shoulder / ribs. Patient states that he is now having issues moving his right shoulder and has pain with deep breathing. Patient denies any head strike or loss of consciousness. Patient states that he is left hand dominant. Patient denies any dizziness, lightheadedness, abdominal pain, nausea, vomiting, fever, chills, blurry vision, double vision, loss of vision, chest pain, difficulty breathing, shortness of breath, back pain, night sweats, pain with urination, increased urinary frequency, increased urinary urgency, blood in his urine or stool, syncope or a near syncopal episode, bowel incontinence, bladder incontinence, or any other complaints at this time. Relieving factors: immobilization Exacerbating factors: movement Associated symptoms: denies other symptoms Treatments prior to arrival: none Related Data Previous Rx's ?Medication ?Instructions ?Recorded omega 7-dcb-ysd-fish oil 100 1 cap PO DAILY #30 caps 07/01/22 mg-160 mg-1,000 mg capsule (Fish Oil) fexofenadine 180 mg tablet 180 mg PO DAILY #30 tabs 07/28/22 (Felipa Allergy) amlodipine 5 mg tablet 5 mg PO DAILY #90 tabs 10/23/22 omeprazole 20 mg capsule,delayed 20 mg PO DAILY #30 caps 01/30/23 release metoprolol succinate 50 mg 50 mg PO DAILY #30 tabs 04/23/23 tablet,extended release 24 hr levofloxacin 500 mg tablet 500 mg PO DAILY 10 days #10 tabs 09/13/23 metronidazole 500 mg tablet 500 mg PO TID #30 tabs 09/13/23 Allergies Allergy/AdvReac Type Severity Reaction Status Date / Time shellfish derived Allergy Severe Anaphylaxis Verified 12/26/24 13:57 Review of Systems Constitutional: Constitutional: Reports no additional constitutional complaints, Denies chills, Denies fever(s) and Denies night sweats Eyes: Eyes: Reports no additional eye complaints, Denies blurry vision, Denies change in vision, Denies diplopia, Denies eye discharge, Denies loss of vision and Denies eye pain ENT: Denies dizziness Cardiovascular: Cardiovascular: Reports no additional cardiovascular complaints, Denies chest pain, Denies lightheadedness, Denies Loss of Consciousness and Denies dyspnea Respiratory: Respiratory: Reports no additional respiratory complaints and Denies dyspnea Gastrointestinal: Gastrointestinal: Reports no additional gastrointestinal complaints, Denies abdominal pain, Denies melena, Denies hematochezia, Denies change in bowel habits and Denies change in stool character Genitourinary: Genitourinary: Reports no additional male genitourinary complaints, Denies hematuria, Denies oliguria, Denies difficulty urinating, Denies dysuria, Denies urinary frequency, Denies urinary hesitancy, Denies urinary incontinence and Denies urinary urgency Musculoskeletal: Musculoskeletal: Reports no additional musculoskeletal complaints, Denies numbness and Denies tingling Comments: right sided rib pain right shoulder pain Neurologic: Denies dizziness, Denies loss of vision, Denies numbness and Denies tingling Psychiatric: Psychiatric: Reports no additional psychiatric complaints Endocrine: Endocrine: Reports no additional endocrine complaints Hematologic/Lymphatic: Hematologic/Lymphatic: Reports no additional hematologic/lymphatic complaints Allergic/Immunologic: Allergic/Immunologic: Reports no additional allergic/immunologic complaints PMFSH Past Medical History Attestation statement: The following information was validated with the patient. (all information validated with the patient's ) Source: old records reviewed, obtained from family (patient's provided additional history and confirmed all history provided by the patient.) and nursing notes reviewed Medical History PAF (paroxysmal atrial fibrillation) Palpitations Allergic rhinitis Alcohol abuse GERD (gastroesophageal reflux disease) Lumbar spondylosis Obesity (BMI 30-39.9) Vitamin D deficiency Cervical radiculopathy Right carpal tunnel syndrome Fatty liver Hypercholesterolemia Hypertension Surgical History H/O colonoscopy H/O shoulder surgery History of back surgery History of open reduction and internal fixation (ORIF) procedure Family History Family History Father No problems noted. Mother History of colostomy reversal Brother ETOH abuse Pancreatitis Myocardial infarct Brother Myocardial infarct Social History Social History Housing: House Alcohol intake: current Alcohol intake frequency: a few times a month Patient Tobacco Use Status: Former Tobacco user Tobacco use type: Cigarette Years Smoked: 1989 e-Cigarette/Vaping Use: Never Used Second Hand Smoke Exposure: No Advance Directives: No Advance Directives Information Provided: Yes Current occupational status: employed Current occupation: On leave Cognitive needs: No Hearing needs: No Vision needs: No Physical Exam ED Vital Signs: Vital Signs - 24 hr 12/26/24 13:55 12/26/24 17:17 Temperature 97.5 F 97.5 F Pulse Rate 93 93 Respiratory Rate 18 18 Blood Pressure 158/104 H 158/104 H Pulse Oximetry 99 99 Oxygen Delivery Method Room Air Room Air BMI result Body Mass Index 31.9 Const General: cooperative, no acute distress, alert and awake Nutritional Appearance: well nourished Orientation/consciousness: patient oriented x3 HENMT Head: Yes normal to inspection and Yes atraumatic Ears: hearing grossly normal bilaterally and external ears normal General nose exam: Normal external nose present, no nasal discharge noted and no epistaxis Face and sinus: Yes normal facial exam, No abrasion and No laceration Mouth: Normal oral and palatal mucosa present, no drooling and no muffled voice Eyes General: appearance normal, both eyes and all related structures Periorbital: periorbital findings normal Eyelids: Yes eyelids normal Conjunctivae: conjunctivae normal Pupils: Equal, round and reactive pupils present EOM: EOMs intact bilaterally Neck Neck: Yes normal visual inspection, Yes full ROM and Yes no lymphadenopathy Resp Effort & Inspection: normal respiratory effort and able to speak in complete sentences Neuro General: patient oriented x3, moves all extremities and CN's II-XI intact bilaterally Cranial nerves: Yes Equal, round and reactive pupils present Cognition (Neuro): normal cognition Extrem Other: decreased range of motion of the right shoulder secondary to pain pain with palpation of the right shoulder - specifically along the right scapula General: Yes normal to inspection and Yes capillary refill normal Psych Appearance: grossly normal Mental Status: mental status grossly normal Affect: normal affect Attitude: cooperative Thought process: Normal thought process present Thought content: Normal thought content present Insight: Good insight present (Psych) Course Course Course Narrative: This is a rapid medical exam performed by Nicole Bravo NP: Additional HPI, ROS, PE not included below will be deferred to primary provider. 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 Unsure of head strike, denies neck or back pain, not anticoagulated. Plan: shoulder and ribs/chest xray Medications Administered Discontinued Medications Generic Name Dose Route Start Last Admin Trade Name Freq PRN Reason Stop Dose Admin Oxycodone HCl 10 mg 12/26/24 15:22 12/26/24 15:42 Oxycodone Hcl Immed Release 5 Mg Tablet PO 12/26/24 15:23 10 mg ONCE ONE Administration Procedures Orthopedic Splinting/Casting Injury #1: Side: right Upper Extremity Injury Location: shoulder Upper Extremity Immobilizer: sling/shoulder immobilizer Medical Decision Making Medical Decision Making [facility] Narrative: Patient is a 59 year old assigned male at with a history of HTN and atrial fib not on anti coagulation therapy, presenting to the emergency department today with right shoulder pain and rib pain after a fall. Patient's physical exam was as noted in the physical exam portion of this note. Patient's right shoulder x-ray and right shoulder CT showed no acute process. I consulted with the orthopedic team who recommended a sling and outpatient follow up. I explained my physical exam findings as well as all test results to the patient and the patient's . I answered all questions asked by the patient and the patient's . Patient's RUE was placed in a sling, without incident. Patient's PMS was intact prior to and after sling placement. I stressed the importance of the patient taking his medication as directed (either prescribed or as the over the counter packaging recommends). I stressed the importance of the patient following up with his primary care provider and the orthopedic team. I stressed the importance of the patient returning to the emergency department immediately if his symptoms were to worsen or if he were to develop any dizziness, shortness of breath, difficulty breathing, chest pain, blurry vision, loss of vision, nausea, vomiting, abdominal pain, fever, chills, back pain, or any other complaints. Patient and the patient's verbalized agreement and understanding with this treatment plan and discharge. Differential Diagnosis Differential Diagnoses: The differential diagnosis associated with the presentation includes Rotator cuff injury Fracture Pain Contusion Admission/Observation Consideration of admission/observation: Escalation of care including admission/observation considered Patient would have been admitted to the hospital had his work up had any findings where hospital admission was appropriate and his clinical presentation warranted hospital admission. Consult Healthcare Provider Management of the patient was discussed with: [facility] (spoke with the orthopedic team as noted in the MDM Rationale portion of this note. ) Independent Interpretation I performed an independent interpretation of an: Plain X-Ray and CT Scan Interpretation: My interpretation is in agreement with the radiologist's impression of these imaging studies. EXAMINATION: XR SHOULDER, RIGHT CLINICAL INFORMATION: fall, pain COMPARISON: None available. TECHNIQUE: Three views of the right shoulder. FINDINGS: Normal bone mineralization. No fracture, dislocation, or suspicious bone lesion. Normal alignment. The glenohumeral joint demonstrates mild to moderate osteoarthrosis with mild undersurface marginal spurring. The AC joint demonstrates mild to moderate osteoarthrosis with mild undersurface and superior surface spurring. There is a type II acromion. No there is a tiny subacromial spur. The subacromial space is grossly preserved. Remainder of the soft tissue and bony structures appear normal. XR/XR shoulder RT min 2V IMPRESSION: 1. No acute bony abnormalities of the right shoulder. 2. Mild to moderate osteoarthrosis of the glenohumeral joint and AC joint. Electronically signed by: Rigoberto Mccall MD 12/26/2024 02:33 PM EDT Dictated By: Rigoberto Mccall MD Signed By: Electronically signed by Rigoberto Mccall MD 12/26/24 1433 EXAMINATION: XR RIBS, RIGHT CLINICAL INFORMATION: fall, pain with inspiration COMPARISON: Chest radiograph 01/05/2024. CT angiogram chest 11/02/2022. TECHNIQUE: PA view of the chest, and 3 views of the right ribs were obtained. FINDINGS: The cardiac silhouette is normal in size. There is prominence of the aortic root, consistent with the known ascending aortic aneurysm. The hilar silhouettes appear normal. The mediastinal silhouettes are otherwise normal. The lungs are clear bilaterally. There is no pneumothorax or effusion. Osseous structures are unremarkable. Ribs are intact. No fractures are identified. XR/XR ribs RT min 3V w CXR1V IMPRESSION: 1. No acute findings of the ribs or lungs. 2. Prominence of the aortic root in keeping with the known thoracic aortic aneurysm. Electronically signed by: Rigoberto Mccall MD 12/26/2024 02:37 PM EDT RP Dictated By: Rigoberto Mccall MD Signed By: Electronically signed by Rigoberto Mccall MD 12/26/24 1437 Report Number: [id number]: Total DLP = 315.00 mGy-cm CLINICAL HISTORY: pain, injury CT right shoulder without contrast Comparison: CR/SR - XR SHOULDER RT MIN 2V - 12/26/24 14:26 EDT Findings: No fracture or dislocation. No osseous lesion. Moderate degenerative change involving the acromioclavicular and glenohumeral joints. There is no joint effusion. There is no fluid collection. The muscles are normal in attenuation and bulk. Unremarkable limited evaluation of the vasculature. Impression: No acute findings. Moderate degenerative change. This document has been electronically signed by: Miryam Jain MD on 12/26/2024 16:49:37 Dictated By: Miryam Ball MD Signed By: Electronically signed by Miryam Ball MD 12/26/24 1650 Radiology Impression Discussion of test interpretation with radiology: I have reviewed the radiologist's reading. Independent Historian Clinical information obtained from an independent historian. History obtained from or confirmed by: Spouse (patient's provided additional history and confirmed the history provided by the patient. ) Critical Care Time Critical Care Time Critical Care Time: Yes Total Critical Care Time: 32 Attestation: I spent 32 minutes of Critical Care Time with this patient. This does not include time spent on separately reported billable procedures. Discharge Plan Discharge Clinical Impression: Injury of shoulder, Shoulder sprain Patient Disposition: Home, Self-Care Instructions: How to Use a Sling (ED), Shoulder Sprain (ED) Additional Instructions: Follow up with your primary care provider and the orthopedic team. Every 1 hour - remove the sling and exercise your right elbow for 10 minutes. Return to the emergency department immediately if your symptoms worsen or if you develop any numbness, tingling, dizziness, shortness of breath, difficulty breathing, chest pain, blurry vision, loss of vision, nausea, vomiting, abdominal pain, fever, chills, back pain, or any other complaints. Please see the information below about our Patient Portal. If you are not yet enrolled in the [facility] Patient Portal, you will receive an enrollment email invitation following your visit to any [facility] setting. You may also self-enroll in the Patient Portal by visiting our website: [email or web address] The following information is required to access the Patient Portal: - Your [facility] Medical Record Number - Your personal home email address (must match what is in your electronic medical record, Registration staff can assist with this) - Name - Date of Capabilities of the Patient Portal: - Message some providers - View upcoming appointments - Access your health summary, medical history, and visit history - View current conditions and allergies - View procedure and lab results - View your medications, including guidelines, side effects, and precautions - Complete pre-appointment questionnaires requested by your provider - Ready summary reports of your office visits and procedures To access the Patient Portal Mobile Van, follow these directions: - Search [employer] in the Van Store or [employer] Store - Download the Van - Search for [facility] - Enter your login/password Prescriptions: No Action fexofenadine [Felipa Allergy] 180 mg tablet 180 mg PO DAILY Qty: 30 0RF amlodipine 5 mg tablet 5 mg PO DAILY Qty: 90 1RF metoprolol succinate 50 mg tablet extended release 24 hr 50 mg PO DAILY Qty: 30 2RF levofloxacin 500 mg tablet 500 mg PO DAILY 10 Days Qty: 10 0RF metronidazole 500 mg tablet 500 mg PO TID Qty: 30 0RF omeprazole 20 mg capsule,delayed release(DR/EC) 20 mg PO DAILY Qty: 30 5RF Fish Oil 100-160-1,000 mg capsule 1 cap PO DAILY Qty: 30 0RF Referrals: [facility] Orthopedic Surgeons [Provider Group] (Call to establish and follow up with the orthopedic team for your right shoulder injury. ) Name,MD Robbie [Primary Care Provider] - Stand Alone Forms: Work/School Release Interventions: ED Discharge Assessment Last Done: 12/26/24 17:17 Discharge Date/Time: 12/26/24 17:17 Print Language: Malagasy
--- OUTSIDE RECORDS SUMMARY | 2024-12-26 15:26 | XMS_ITS | Encounter Summary ---
Author Organization [employer] Address [address] [place] [address] Care Team Providers Care Long Wall Mining Machine Tender Name Role Phone Name, Robbie PIERCE Primary Care Provider [phone] Reason for Visit * Reason Onset Date Comments Chart Prep 12/23/2024 Encounter Details Date Type Department Care Team (Late st Contact Info) Description 12/23/2024 Telephone [facility] [address] [place] [address] Zuly Hopkins [place] Chart Prep Social History [...] Info) Description 01/02/2025 2:30 PM EDT Telemedicine [facility] [address] [place] [phone] 04/14/2025 1:30 PM EDT Office Visit [facility] [address] [place] [phone] Robbie Linn MD [address] [place] [phone] documented as of this encounter Visit Diagnoses Not on filedocumented in this encounter Additional Health Concerns Assessment Noted Time PHQ-9 Depression Total Score: 0 11/10/19 9:32 AM EDT documented as of this encounter Care Teams Long Wall Mining Machine Tender Relationship Specialty Start Date End Date Robbie Linn MD [address] [place] [phone] PCP - General Internal Medicine 11/10/23 documented as of this encounter
--- OUTSIDE RECORDS SUMMARY | 2024-12-26 15:26 | XMS_ITS ---
Author Organization [facility] Address [address] [place] [phone] Care Team Providers Care Puttying And Calking Supervisor Name Role Phone Miguel Umanzor MD, Andrew Primary Care Provide r Unavailable Kenney England Jr [phone] REASON FOR VISIT Patient presents today for H pylori Encounters Encounter Location Date Provider Diagnosis [facility] [address] [place] [phone] 10/30/2024 Kenney England Jr Plan Of Treatment No Information Progress Notes * FRANCIE GORDON SrDOB:12/1964 (59 yo M)Acc No.[id number]:10/30/2024 Progress Notes Patient:?FRANCIE GORDON Provider:?Kenney England MD :1965???Age:59 Y???Sex:Male Peyman e:10/30/2024 Address:[address] [facility] Pcp:Andrew burris MD Subjective: * Chief Complaints: [...] Date:?0 10/30/2024 Generated for Tank buckley/Carlos Eduardo/Delbertitting on:?12/26/2024 03:25 PM EDT
--- OUTSIDE RECORDS SUMMARY | 2024-12-26 15:26 | XMS_ITS | Encounter Summary ---
Author Organization [employer] Address [address] [place] [address] Care Team Providers Care Futures Trader Name Role Phone Name, Robibe PIERCE Primary Care Provider [phone] Reason for Visit * Reason Comments Hypertension Encounter Details Date Type Department Care Team ([facility] Contact Info) Description 12/24/2024 4:00 PM EDT Office Visit [facility] [address] [place], [place] [phone] Name, MD Robbie [address] [place] [address] Hypertension, unspecified type (Primary Dx); Paroxysmal A-fib [...] Metoprolol was originally prescribed by cardiology at [facility] because of a history of PVCs and [...] (CMS/HCC) Comments: Patient used to follow with [facility] cardiology. He used to have frequent palpitations. [...] Info) Description 01/02/2025 2:30 PM EDT Telemedicine [facility] [address] [place] [phone] 04/14/2025 1:30 PM EDT Office Visit [facility] [address] [place] [phone] Name, MD Robbie [address] [place] [phone] documented as of this encounter Procedures Procedure Name Priority Date/Time Associated Diagnosis Comments LIPID PANEL, STANDARD Routine 12/25/2024 7:36 AM EDT Hypertension, unspecified type COMPREHENSIVE METABOLIC PANEL Routine 12/25/2024 7:36 AM EDT Hypertension, unspecified type documented in this encounter Results * (ABNORMAL) Lipid Panel, Standard (12/25/2024 7:36 AM EDT) Triglycerides 75 <150 mg/dL [facility] Comment:Desirable Triglyceri de: less than 150 mg/dLBorderline High Triglyceride 150-199 mg/dLHigh Triglyceride: 200-499 mg/dLVery High Triglyceride: greater than or equal to 5OO mg/dL Cholesterol 187 <200 mg/dL [facility] Comment:Desirable Cholestero l: less than 200 mg/dLBorderline High Cholesterol: 200-239 mg/dLHigh Cholesterol: greater than 239 mg/dL LDL Cholesterol Calculated 126(H) <100 mg/dL [facility] Comment:Desirable LDL: less than 100 mg/dLNear Optimal/Above Optimal LDL: 110- 129 mg/dLBorderline High LDL: 130-159 mg/dLHigh LDL: 160-189 mg/dLVery High LDL: greater than or equal to 190 mg/dL HDL Cholesterol 46 >40 mg/dL [facility] Comment:Desirable HDL: great er than 40 mg/dL Note: This HDL assay may give artificially low results in patients with liver disease. Blood Venous blood specimen / Unknown 12/25/2024 7:36 AM EDT 12/25/2024 7:36 AM EDT us Robbie Name MD LAB BLOOD ORDERABLES Final Resul t [facility] [address] [place] [phone] * (ABNORMAL) Comprehensive Metabolic Panel (12/25/2024 7:36 AM EDT) Sodium 139 135 - 145 mmol/L [facility] Potassium 3.9 3.3 - 5.1 mmol/L [facility] Chloride 109(H) 96 - 108 mmol/L [facility] Carbon Dioxide 23 22 - 29 mmol/L [facility] Anion Gap 11(L) 12 - 20 [facility] Urea Nitrogen (BUN) 12 9 - 16 mg/dL [facility] Creatinine, Serum 0.99 0.5 - 1.4 mg/dL [facility] Estimated Glomerular Filt Rate >60 [facility] Comment:Chronic Kidney Disea se: Estimated GFR < 60 mL/min/[id number] Kidney Disease: Estimated GFR < 15 mL/min/1.73m2 Glucose 112 60 - 115 mg/dL [facility] Calcium 8.7 8.4 - 10.2 mg/dL [facility] Bilirubin, Total 0.6 0.0 - 1.0 mg/dL [facility] Aspartate Amino Transferase 24 5 - 37 U/L [facility] Alanine Aminotransferase 30 0 - 40 U/L [facility] Total Protein 7.6 6.5 - 8.0 g/dL [facility] Albumin Level 4.2 3.5 - 5.0 g/dL [facility] Alkaline Phosphatase 61 39 - 117 U/L [facility] Blood Venous blood specimen / Unknown 12/25/2024 7:36 AM EDT 12/25/2024 7:36 AM EDT us Robbie Linn MD LAB BLOOD ORDERABLES Final Resul t [facility] [address] [place] [phone] documented in this encounter Visit Diagnoses Diagnosis Hypertension, unspecified type- Primary Paroxysmal A-fib (CMS/HCC) Mild intermittent asthma without complication documented in this encounter Additional Health Concerns Assessment Noted Time PHQ-9 Depression Total Score: 1 12/25/19 25 4:51 PM EDT documented as of this encounter Care Teams Futures Trader Relationship Specialty Start Date End Date Name, MD Robbie [address] [place] [address] PCP - General Internal Medicine 11/10/23 documented as of this encounter
--- OUTSIDE RECORDS SUMMARY | 2024-12-26 15:26 | XMS_ITS | Clinical Summary ---
Author Organization [employer] Address [address] [facility] 7[address] [place] [address] Care Team Providers Care Triage Rn Name Role Phone Name, Robbie PIERCE Primary Care Provider [phone] Allergies Active Allergy Reactions Criticality Noted Date Comments Shellfish Allergy 01/04/2024 Shellfish-Derived Products Itching,Runny nose,Shortness of breath,Swelling,Wheezing High 2004 Medications albuterol 108 (90 Base) MCG/ACT inhaler Inhale 2 puffs every 6 (six) hours if needed for wheezing. 18 g 11/10/19 24 Active omeprazole OTC (PriLOSEC OTC) 20 MG EC tabletIndicatio ns:History of Helicobacter pylori infection Take 1 tablet (20 mg) by mouth before breakfast. Do not crush, chew, or split. 30 tablet 11/10/19 24 Active fluticasone (Flonase Allergy Relief) 50 MCG/ACT nasal spray Administer 1 spray into each nostril Once per day. Shake gently. Before first use, prime pump. After use, clean tip and replace cap. 16 g 12 12/11/19 24 Active Blood Pressure kit Use once a day 1 kit 12/25/19 25 Active losartan-hydroC HLOROthiazide (Hyzaar) 50-12.5 MG tablet Take 1 tablet by mouth Once per day. 30 tablet 12/25/19 026 Active metoprolol succinate XL (Toprol XL) 25 MG 24 hr tablet Take 1 tablet (25 mg) by mouth Once per day. Do not crush or chew. 30 tablet 12/25/19 026 Active fluticasone furoate (Arnuity Ellipta) 100 MCG/ACT inhaler Inhale 1 puff Once per day. Rinse mouth with water after use to reduce aftertaste and incidence of candidiasis. Do not swallow. 1 each 12/25/19 026 Active atorvastatin (Lipitor) 20 MG tablet Take 1 tablet (20 mg) by mouth Once per day. 30 tablet 12/26/19 026 Active metoprolol succinate XL (Toprol XL) 50 MG 24 hr tabletIndicatio ns:Hypertension , unspecified type Take 1 tablet (50 mg) by mouth in the morning. Do not crush or chew. 30 tablet 11/10/19 025 Discontinued(T herapy completed) amLODIPine (Norvasc) 10 MG tablet Take 1 tablet (10 mg) by mouth Once per day. 30 tablet 01/05/20 025 Discontinued Active Problems Problem Noted Date Diagnosed Date Paroxysmal A-fib 12/24/2024 Class 1 obesity 01/04/2024 Heartburn 11/10/2023 Mild asthma 11/10/2023 HTN (hypertension) 09/13/2023 Tinnitus of both ears 09/13/2023 Encounters Date Type Department Care Team Description 12/26/2024 Orders Only [facility] External Provider, [facility] 12/25/2024 Telephone [facility] [address] [place] [address] NameRobbie MD 12/24/2024 4:00 PM EDT Office Visit [facility] [address] [place] [address] NameRobbie MD Hypertension, unspecified type (Primary Dx); Paroxysmal A-fib (CMS/HCC); Mild intermittent asthma without complication 12/24/2024 Travel 12/23/2024 Travel 12/23/2024 Telephone [facility] [address] [place] [address] Zuly Hopkins [place] Chart Prep 11/01/2024 Population Health Risk Score [facility] ([facility]) Department [address] [place] [phone] Provider, Population Health Generic 10/11/2024 Telephone [facility] [address] [place] [address] Name, MD Rbobie Appointment Request from Last 3 Months Immunizations Name Administration Dates Next Due HepB-CpG 11/30/2023 Influenza injectable quadriv alent IIV4 with preservative 05/21/2019 Influenza injectable quadriv alent preservative free 06/13/2023,07/01/2022,05/12/2020 Influenza, seasonal, injecta ble, preservative free 05/06/2024 Pneumococcal Conjugate PCV 20 05/06/2024 Tdap 07/02/2019 Zoster, Recombinant 11/30/2023 Family History Medical History Relation Name Comments Lung cancer Brother 1 Heart attack Brother 2 Diverticulitis Mother Relation Name Status Comments Brother 1 Brother 2 Mother Alive Social History Tobacco Use Types Packs/Day Years [...] Don't know 09/13/2023 9: 21 AM EST Last Filed Vital Signs Vital Sign Reading [...] Mass Index 32.24 12/24/2024 4:17 PM EDT Plan of Treatment Upcoming Encounters Date Type Department Care Team (Late st Contact Info) Description 01/02/2025 2:30 PM EDT Telemedicine [address] [address] 04/14/2025 1:30 PM EDT Office Visit [address] [address] Name, MD Robbie [address] [place] [address] Health Maintenance Due Date Last Done Comments CT Colonography 1965 FIT DNA/Cologuard 1965 FIT 1965 FOBT 1965 Sigmoidoscopy 1965 RSV Patients and Patients Aged 60 years or older (1 - Risk 60-74 years 1-dose series) 2023 Hepatitis B Vaccines (2 of 2 - CpG 2-dose series) 12/28/2023 11/30/2023 Zoster Vaccines (2 of 2) 01/25/2024 11/30/2023 COVID-19 Vaccine ( season) 2024 10/01/2021, 03/02/2021, 02/02/2021 Alcohol/Substance Use Screening 12/24/2025 12/24/2024 Depression Screening 12/24/2025 12/24/2024, 12/25/19 SDOH Screening 12/24/2025 12/24/2024 Tobacco Screening 12/24/2025 12/24/2024 Colonoscopy 07/18/2028 07/18/2023 Colorectal Cancer Screening 07/18/2028 DTaP/Tdap/Td Vaccines (2 - Td or Tdap) 07/02/2029 07/02/2019 Lipid Panel 12/25/2029 12/25/2024, 04/21, 11/10/2023 HIV Screening Completed 05/06/2024 Hepatitis C Screening Completed 05/06/2024 Influenza Vaccine Completed 05/06/2024, , 07/01/2022, Additional history exists Pneumococcal Vaccine: 50+ Years Completed 05/06/2024 HIB Vaccines Aged Out No longer eligi ble based on patient's age to complete this topic HPV Vaccines Aged Out No longer eligi ble based on patient's age to complete this topic Hepatitis A Vaccines Aged Out No long er eligible based on patient's age to complete this topic IPV Vaccines Aged Out No longer eligi ble based on patient's age to complete this topic Meningococcal Vaccine Aged Out No dayana elizabeth eligible based on patient's age to complete this topic RSV under 20 months Aged Out No longe r eligible based on patient's age to complete this topic Rotavirus Vaccines Aged Out No longer eligible based on patient's age to complete this topic Procedures Procedure Name Priority Date/Time Associated Diagnosis Comments XR RIBS 3 VIEWS RIGHT W CHEST 1 VIEW Routine 12/26/2024 2:05 PM EDT XR SHOULDER 2+ VIEWS RIGHT Routine 12/26/2024 2:05 PM EDT LIPID PANEL, STANDARD Routine 12/25/2024 7:36 AM EDT Hypertension, unspecified type COMPREHENSIVE METABOLIC PANEL Routine 12/25/2024 7:36 AM EDT Hypertension, unspecified type HEPATITIS C AB W/REFL TO HCV RNA, QN, PCR Routine 05/06/2024 12:20 PM EDT Need for hepatitis C screening test HIV 1/2 ANTIGEN/ANTIBODY, FOURTH GENERATION W/RFL Routine 05/06/2024 12:20 PM EDT Encounter for screening for HIV HM COLONOSCOPY Routine 07/18/2023 from Last 3 Months or Most Recently Relevant to Health Maintenance Results * XR Ribs 3 Views Right with Chest 1 View (12/26/2024 2:05 PM EDT) Anatomical Region Laterality Modality Radiographic Yani ging 12/26/2024 2:05 PM EDT Narrative 12/26/2024 2:40 PM EDT ? [facility] ?[address] ?[place] [address] ?XRay Report ? Signed ? Patient: Paco Do ?MR#: ?? [id number] ? : 1965 ?Acct:[id number] ? Age/Sex: 59 / M ?ADM Date: 12/26/24 ? Loc: HO.ED ? Attending Dr: ? Ordering Physician: Maria Bravo NP ?? Date of Service: 12/26/24 ?? Procedure(s): XR ribs RT min 3V w CXR1V ?? Accession Number(s): [id number] ? cc: Robbie Linn MD; Maria Bravo NP ? EXAMINATION: ?? XR RIBS, RIGHT ? CLINICAL INFORMATION: ?? fall, pain with inspiration ? COMPARISON: ?? Chest radiograph 01/05/2024. ?? CT angiogram chest 11/02/2022. ? TECHNIQUE: ?? PA view of the chest, and 3 views of the right ribs were obtained. ? FINDINGS: ?? The cardiac silhouette is normal in size. There is prominence of the ?? aortic root, consistent with the known ascending aortic aneurysm. The ?? hilar silhouettes appear normal. The mediastinal silhouettes are ?? otherwise normal. ? The lungs are clear bilaterally. There is no pneumothorax or effusion. ? Osseous structures are unremarkable. Ribs are intact. No fractures are ?? identified. ? XR/XR ribs RT min 3V w CXR1V ?? IMPRESSION: ?? 1. No acute findings of the ribs or lungs. ?? 2. Prominence of the aortic root in keeping with the known thoracic ?? aortic aneurysm. ? Electronically signed by: ??Rigoberto Mccall MD ??12/26/2024 02:37 PM EDT RP ? Dictated By: ?Rigoberto Mccall MD ? Signed By: ?<Electronically signed by Rigoberto Mccall MD in OV> ?12/26/24 1437 ? DD/ 1405 ? TD/TT: 12/26/24 1428 ? Maintenance Team Member: ? Procedure Note Mirza, Image - 12/26/[address] [address] XRay Report Signed Patient: Kenji Do#: [id number] : 1965Acct:[id number] Age/Sex: 59 / MADM Date: 12/26/24 Loc: HO.ED Attending Dr: Ordering Physician: Maria Bravo NP Date of Service: 12/26/24 Procedure(s): XR ribs RT min 3V w CXR1V Accession Number(s): [id number] cc: Robbie Linn MD; Maria Bravo NP EXAMINATION: XR RIBS, RIGHT CLINICAL INFORMATION: fall, pain with inspiration COMPARISON: Chest radiograph 01/05/2024. CT angiogram chest 11/02/2022. TECHNIQUE: PA view of the chest, and 3 views of the right ribs were obtained. FINDINGS: The cardiac silhouette is normal in size. There is prominence of the aortic root, consistent with the known ascending aortic aneurysm. The hilar silhouettes appear normal. The mediastinal silhouettes are otherwise normal. The lungs are clear bilaterally. There is no pneumothorax or effusion. Osseous structures are unremarkable. Ribs are intact. No fractures are identified. XR/XR ribs RT min 3V w CXR1V IMPRESSION: 1. No acute findings of the ribs or lungs. 2. Prominence of the aortic root in keeping with the known thoracic aortic aneurysm. Electronically signed by: Rigoberto Mcclal MD 12/26/2024 02:37 PM EDT RP Dictated By: Rigoberto Mccall MD Signed By: <Electronically signed by Rigoberto Mccall MD in OV> 12/26/24 1437 DD/ 1405 TD/TT: 12/26/24 1428 Maintenance Team Member: [facility] External Provider IMG XR PROCEDURES Edited Result - Final * XR Shoulder 2+ Views Right (12/26/2024 2:05 PM EDT) Anatomical Region Laterality Modality Upper Extremities, Shoulder Right Radi ographic Imaging 12/26/2024 2:05 PM EDT Narrative 12/26/2024 2:36 PM EDT ? [facility] ?[address] ?[place] [address] ?XRay Report ? Signed ? Patient: Paco Do ?MR#: ?? [id number] ? : 1965 ?Acct:[id number] ? Age/Sex: 59 / M ?ADM Date: 12/26/24 ? Loc: HO.ED ? Attending Dr: ? Ordering Physician: Maria Bravo NP ?? Date of Service: 12/26/24 ?? Procedure(s): XR shoulder RT min 2V ?? Accession Number(s): [id number] ? cc: Robbie Linn MD; Maria Bravo NP ? EXAMINATION: ?? XR SHOULDER, RIGHT ? CLINICAL INFORMATION: ?? fall, pain ? COMPARISON: ?? None available. ? TECHNIQUE: ?? Three views of the right shoulder. ? FINDINGS: ?? Normal bone mineralization. No fracture, dislocation, or suspicious ?? bone lesion. Normal alignment. ?? The glenohumeral joint demonstrates mild to moderate osteoarthrosis ?? with mild undersurface marginal spurring. ?? The AC joint demonstrates mild to moderate osteoarthrosis with mild ?? undersurface and superior surface spurring. ?? There is a type II acromion. No there is a tiny subacromial spur. ?? The subacromial space is grossly preserved. ? Remainder of the soft tissue and bony structures appear normal. ? XR/XR shoulder RT min 2V ?? IMPRESSION: ?? 1. No acute bony abnormalities of the right shoulder. ?? 2. Mild to moderate osteoarthrosis of the glenohumeral joint and AC ?? joint. ? Electronically signed by: ??Rigoberto Mccall MD ??12/26/2024 02:33 PM EDT RP ? Dictated By: ?Rigoberto Mccall MD ? Signed By: ?<Electronically signed by Rigoberto Mccall MD in OV> ?12/26/24 1433 ? DD/ 1405 ? TD/TT: 12/26/24 1428 ? Maintenance Team Member: ? Procedure Note Del Blue - 12/26/2024 [place] [address] XRay Report Signed Patient: Kenji Do#: [id number] : 1965Acct:[id number] Age/Sex: 59 / MADM Date: 12/26/24 Loc: HO.ED Attending Dr: Ordering Physician: Maria Bravo NP Date of Service: 12/26/24 Procedure(s): XR shoulder RT min 2V Accession Number(s): [id number] cc: Robbie Linn MD; Maria Bravo NP EXAMINATION: XR SHOULDER, RIGHT CLINICAL INFORMATION: fall, pain COMPARISON: None available. TECHNIQUE: Three views of the right shoulder. FINDINGS: Normal bone mineralization. No fracture, dislocation, or suspicious bone lesion. Normal alignment. The glenohumeral joint demonstrates mild to moderate osteoarthrosis with mild undersurface marginal spurring. The AC joint demonstrates mild to moderate osteoarthrosis with mild undersurface and superior surface spurring. There is a type II acromion. No there is a tiny subacromial spur. The subacromial space is grossly preserved. Remainder of the soft tissue and bony structures appear normal. XR/XR shoulder RT min 2V IMPRESSION: 1. No acute bony abnormalities of the right shoulder. 2. Mild to moderate osteoarthrosis of the glenohumeral joint and AC joint. Electronically signed by: Rigoberto Mccall MD 12/26/2024 02:33 PM EDT RP Workstation: [id number] Dictated By: Rigoberto Mccall MD Signed By: <Electronically signed by Rigoberto Mccall MD in OV> 12/26/24 1433 DD/ 1405 TD/TT: 12/26/24 1428 Maintenance Team Member: [facility] External Provider IMG XR PROCEDURES Edited Result - Final * (ABNORMAL) Lipid Panel, Standard (12/25/2024 7:36 AM EDT) Triglycerides 75 <150 mg/dL [facility] Comment:Desirable Triglyceri de: less than 150 mg/dLBorderline High Triglyceride 150-199 mg/dLHigh Triglyceride: 200-499 mg/dLVery High Triglyceride: greater than or equal to 5OO mg/dL Cholesterol 187 <200 mg/dL [facility] Comment:Desirable Cholestero l: less than 200 mg/dLBorderline High Cholesterol: 200-239 mg/dLHigh Cholesterol: greater than 239 mg/dL LDL Cholesterol Calculated 126(H) <100 mg/dL [facility] Comment:Desirable LDL: less than 100 mg/dLNear Optimal/Above Optimal LDL: 110- 129 mg/dLBorderline High LDL: 130-159 mg/dLHigh LDL: 160-189 mg/dLVery High LDL: greater than or equal to 190 mg/dL HDL Cholesterol 46 >40 mg/dL [facility] Comment:Desirable HDL: great er than 40 mg/dL Note: This HDL assay may give artificially low results in patients with liver disease. Blood Venous blood specimen / Unknown 12/25/2024 7:36 AM EDT 12/25/2024 7:36 AM EDT Robbie Linn MD LAB BLOOD ORDERABLES Final Resul t [facility] [address] [place] [address] [phone] * (ABNORMAL) Comprehensive Metabolic Panel (12/25/2024 7:36 AM EDT) Sodium 139 135 - 145 mmol/L [facility] Potassium 3.9 3.3 - 5.1 mmol/L [facility] Chloride 109(H) 96 - 108 mmol/L [facility] Carbon Dioxide 23 22 - 29 mmol/L [facility] Anion Gap 11(L) 12 - 20 [facility] Urea Nitrogen (BUN) 12 9 - 16 mg/dL [facility] Creatinine, Serum 0.99 0.5 - 1.4 mg/dL [facility] Estimated Glomerular Filt Rate >60 [facility] Comment:Chronic Kidney Disea se: Estimated GFR < 60 mL/min/1.61s5Fivdso Kidney Disease: Estimated GFR < 15 mL/min/1.73m2 Glucose 112 60 - 115 mg/dL [facility] Calcium 8.7 8.4 - 10.2 mg/dL [facility] Bilirubin, Total 0.6 0.0 - 1.0 mg/dL [facility] Aspartate Amino Transferase 24 5 - 37 U/L [facility] Alanine Aminotransferase 30 0 - 40 U/L [facility] Total Protein 7.6 6.5 - 8.0 g/dL [facility] Albumin Level 4.2 3.5 - 5.0 g/dL [facility] Alkaline Phosphatase 61 39 - 117 U/L [facility] Blood Venous blood specimen / Unknown 12/25/2024 7:36 AM EDT 12/25/2024 7:36 AM EDT us Robbie Linn MD LAB BLOOD ORDERABLES Final Resul t [facility] [address] [place] [address] [phone] * Hepatitis C Antibody with Reflex to HCV, RNA, Quantitative, Real-Time PCR (05/06/2024 12:20 PM EDT) [facility] Hepatitis C Antibody Nonreactive Nonreactive [facility] Comment:Antibodies to HCV no t detected; does not exclude early acuteHCV infection. Blood Venous blood specimen / Unknown 05/06/2024 12:20 PM EDT 05/06/2024 1:45 PM EDT us Robbie Linn MD LAB BLOOD ORDERABLES Final Resul t [facility] [address] [place] [address] [phone] * HIV-1/2 Antigen and Antibodies, Fourth Generation, with Reflexes (05/06/2024 12:20 PM EDT) [facility] HIV AB/AG Nonreactive Nonreactive [facility] Comment:HIV-1 p24 Ag and/or HIV-1/HIV-2 Ab not detected.A test result that is nonreactive does not exclude thepossibility of exposure to or infection with HIV-1 and/orHIV-2. Nonreactive results in this assay for individualswith prior exposure to HIV-1 and/or HIV-2 may be due toantigen and antibody levels that are below the limit ofdetection of this assay.The [employer] HIV Ag/Ab Combo assay result andsupplemental assay results should be interpreted inconjunction with the patient's clinical presentation,history and other laboratory results. If the results areinconsistent with clinical evidence, additional testing issuggested to confirm the result. Blood Venous blood specimen / Unknown 05/06/2024 12:20 PM EDT 05/06/2024 1:45 PM EDT us Robbie Linn MD LAB BLOOD ORDERABLES Final Resul t Performing Organization Address City/[facility]/ZIP Co de Phone Number [facility] [address] [place] [address] [phone] * (ABNORMAL) Hm Colonoscopy (07/18/2023) Colonoscopy Abnormal(A ) Normal [facility] External Provider HEALTH MAINTENANCE Final Result from Last 3 Months or Most Recently Relevant to Health Maintenance Insurance [facility] C3 HSN FULL Care Teams Triage Rn Relationship Specialty Start Date End Date Name, MD Robbie [address] [place] [phone] PCP - General Internal Medicine 11/10/23
--- OUTSIDE RECORDS SUMMARY | 2024-12-26 15:26 | XMS_ITS ---
Author Organization [facility] Address [address] [place] [phone] Care Team Providers Care Dental Detail Representative Name Role Phone Miguel Umanzor MD, Andrew Primary Care Provide r Jono England Jr, Kenney De La Cruz [phone] REASON FOR VISIT labs Encounters Encounter Location Date Provider Diagnosis [facility] [address] [place] [phone] 11/14/2023 Kenney England Jr Plan Of Treatment No Information Progress Notes * FRANCIE GORDON SrDOB:12/1964 (58 yo M)Acc No.[id number]:11/14/2023 Patient:?FRANCIE GORDON :1965???Age:58 Y???Sex:Male Address:[address] [place] [address], [address] * true * Date:? Generated for Tank buckley/Carlos Eduardo/eTransmitting on:?12/26/2024 03:25 PM EDT
--- OUTSIDE RECORDS SUMMARY | 2024-12-26 15:26 | XMS_ITS | Patient Health Record ---
Author Organization [facility] Address [address] [place] [address] Care Team Providers Care Tow Driver Name Role Phone Miguel Umanzor MD, Andrew Primary Care Provide r Unavailable Kenney Trevino Jr Unavailable Allergies Allergen (clinical drug ingredient) Drug/Non Drug Allergy documented on EMR Reaction Allergy Type Onset Date Status Shellfish (FN) shell fish (uncoded) Unknown Allergy Active Reason For Referral Referring Provider First Name Andrew Referring Provider Last Name Miguel fox Referring Provider Speciality Internal M edicine Referred Organization [facility] Referred Provider Kenney Trevino Jr Referred Address [address] [facility] [address], [place],[address], Referred Provider Specialty Gastroentero logy General Notes Odalis Fernandez 2024 04:21:13 PM >requested a [facility] referral from [facility] for visit with dr trevino on [...] Problem Status W/U Status Risk Notes Problem 249243029 Colon cancer screening (Z12.11) Active confirmed Problem 280724933 Diverticulitis (K57.92) Active confirmed Problem 497346103 Gastroesophageal reflux disease without esophagitis (K21.9) Active confirmed Problem Gastroesophageal reflux disease (118703848) GERD (gastroesophageal reflux disease) (K21.9) Active confirmed Problem 968478757 H. pylori infection (A04.8) Active confirmed Encounters Encounter Location Date Provider Diagnosis [facility] [address] [place] [address] 10/29/2024 Kenney Trevino Jr Plan Of Treatment Pending Test Test Name Order Date H PYLORI AG, STOOL 10/30/2023 Future Test Test Name Order Date COLONOSCOPY 07/05/2013 UPPER GI ENDOSCOPY 05/25/2023 COLONOSCOPY 05/25/2023 Insurance Providers Payer Name Payer Address Payer Phone Subscriber Number Group Number Insured Name Patient Relationship to Insured Coverage Start Date Coverage End Date [employer] [facility] [address] [place] [id number] FRANCIE GORDON Self - patient is the [...]
--- OUTSIDE RECORDS SUMMARY | 2024-12-26 15:26 | XMS_ITS | Encounter Summary ---
Author Organization [employer] Address [address] [place] [address] Care Team Providers Care Top Frame Maker Name Role Phone Name, Robbie PIERCE Primary Care Provider [phone] Encounter Details Date Type Department Care Team [...] Info) Description 01/02/2025 2:30 PM EDT Telemedicine [facility] [address] [place] [phone] 04/14/2025 1:30 PM EDT Office Visit [facility] [address] [place] [phone] NameRobbie MD [address] [place] [phone] documented as of this encounter Visit Diagnoses Not on filedocumented in this encounter Additional Health Concerns Assessment Noted Time PHQ-9 Depression Total Score: 1 12/25/19 25 4:51 PM EDT documented as of this encounter Care Teams Top Frame Maker Relationship Specialty Start Date End Date NameRobbie MD [address] [place] [phone] PCP - General Internal Medicine 11/10/23 documented as of this encounter
--- OUTSIDE RECORDS SUMMARY | 2024-12-26 15:26 | XMS_ITS ---
Author Organization [facility] Address [address] [place] [phone] Care Team Providers Care All Around Presser Name Role Phone Miguel Umanzor MD, Andrew Primary Care Provide r Unavailable Kenney [place] Jr REASON FOR VISIT cancel appt Encounters Encounter Location Date Provider Diagnosis [facility] [address] [place] [phone] 10/29/2024 Kenney [place] Jr Plan Of Treatment No Information Progress Notes * FRANCIE GORDON SrDOB:12/1964 (59 yo M)Acc No.[id number]:10/29/2024 Patient:?MARY JANE GORDONEDO Yaneli das :1965???Age:59 Y???Sex:Male Address:[facility] [place], [address] * true * Date:? Generated for Osmanyi marcio/Carlos Eduardo/eTransmitting on:?12/26/2024 03:26 PM EDT
--- OUTSIDE RECORDS SUMMARY | 2024-12-26 15:26 | XMS_ITS | Encounter Summary ---
Author Organization [employer] Address [address] [facility] [address] [place] [address] Care Team Providers Care Crane Crew Supervisor Name Role Phone Name, Robbie PIERCE Primary Care Provider [phone] Encounter Details Date Type Department Care Team [...] Info) Description 01/02/2025 2:30 PM EDT Telemedicine [facility] MEDICINE [address] [place] [address] 04/14/2025 1:30 PM EDT Office Visit [facility] [address] [place] [phone] NameRobbie MD [address] [place] [phone] documented as of this encounter Visit Diagnoses Not on filedocumented in this encounter Additional Health Concerns Assessment Noted Time PHQ-9 Depression Total Score: 0 11/10/19 9:32 AM EDT documented as of this encounter Care Teams Crane Crew Supervisor Relationship Specialty Start Date End Date NameRobbie MD [address] [place] [phone] PCP - General Internal Medicine 11/10/23 documented as of this encounter
--- OUTSIDE RECORDS SUMMARY | 2024-12-26 15:27 | XMS_ITS | Encounter Summary ---
Author Organization [email or web address] Address [address] [facility] 7t [place] [address] Care Team Providers Care Swing Saw Operator Name Role Phone Name, Robbie PIERCE Primary Care Provider [phone] Encounter Details Date Type Department Care Team (Late st Contact Info) Description 12/26/2024 Orders Only [facility] External Provider, [facility] Social History Tobacco Use Types Packs/Day Years [...] Info) Description 01/02/2025 2:30 PM EDT Telemedicine [facility] MEDICINE [address] [place] [address] 04/14/2025 1:30 PM EDT Office Visit [facility] [address] [place] [address] Name, MD Robbie [address] [place] [address] documented as of this encounter Procedures Procedure Name Priority Date/Time Associated Diagnosis Comments XR RIBS 3 VIEWS RIGHT W CHEST 1 VIEW Routine 12/26/2024 2:05 PM EDT XR SHOULDER 2+ VIEWS RIGHT Routine 12/26/2024 2:05 PM EDT documented in this encounter Results * XR Ribs 3 Views Right with Chest 1 View (12/26/2024 2:05 PM EDT) Anatomical Region Laterality Modality Radiographic Yani ging 12/26/2024 2:05 PM EDT Narrative 12/26/2024 2:40 PM EDT ? [facility] ?[address] ?[place] [address] ?XRay Report ? Signed ? Patient: Anguiano Oglesby,Paco ?MR#: ?? [id number] ? : 1965 ?Acct:[id number] ? Age/Sex: 59 / M ?ADM Date: 05/08/25 ? Loc: HO.ED ? Attending Dr: ? Ordering Physician: Maria Bravo NP ?? Date of Service: 12/26/24 ?? Procedure(s): XR ribs RT min 3V w CXR1V ?? Accession Number(s): [id number] ? cc: Name,Robbie PIERCE; Maria Bravo NP ? EXAMINATION: ?? XR [...] DD/ 1405 ? TD/TT: 12/26/24 1428 ? Recovery Room Rn: ? Procedure Note Mirza, Image - 12/26/[address] [address] XRay Report Signed Patient: Kenji Do#: [id number] : 1965Acct:[id number] Age/Sex: 59 / MADM Date: 12/26/24 Loc: HO.ED Attending Dr: Ordering Physician: Maria Bravo NP Date of Service: 12/26/24 Procedure(s): XR ribs RT min 3V w CXR1V Accession Number(s): [id number] cc: Robbie Linn MD; Maria Bravo NP [...] thoracic aortic aneurysm. Electronically signed by: Rigoberto Mccall MD 12/26/2024 02:37 PM EDT Dictated By: Rigoberto Mccall MD Signed By: <Electronically signed by Rigoberto Mccall MD in OV> 12/26/24 1437 DD/ 1405 TD/TT: 12/26/24 1428 Recovery Room Rn: [facility] External Provider IMG XR PROCEDURES Edited Result - Final * XR Shoulder 2+ Views Right (12/26/2024 2:05 PM EDT) Anatomical Region Laterality Modality Upper Extremities, Shoulder Right Radi ographic Imaging 12/26/2024 2:05 PM EDT Narrative 12/26/2024 2:36 PM EDT ? [facility] ?[address] ?[place] [address] ?XRay Report ? Signed ? Patient: Anguiano Oglesby,Paco ?MR#: ?? [id number] ? : 1965 ?Acct:[id number] ? Age/Sex: 59 / M ?ADM Date: 05/08/25 ? Loc: HO.ED ? Attending Dr: ? Ordering Physician: Maria Bravo NP ?? Date of Service: 12/26/24 ?? Procedure(s): XR shoulder RT min 2V ?? Accession Number(s): [id number] ? cc: Name,Robbie PIERCE; Maria Bravo NP ? EXAMINATION: ?? XR [...] Mccall MD ??12/26/2024 02:33 PM EDT RP ?? Workstation: [id number] ? Dictated By: ?Rigoberto Mccall MD ? Signed By: ?<Electronically signed by Rigoberto Mccall MD in OV> ?12/26/24 1433 ? DD/ 1405 ? TD/TT: 12/26/24 1428 ? Recovery Room Rn: ? Procedure Note Del Blue - 12/26/[address] [address] XRay Report Signed Patient: Kenji Do#: [id number] : 1965Acct:[id number] Age/Sex: 59 / MADM Date: 12/26/24 Loc: HO.ED Attending Dr: Ordering Physician: Maria Bravo NP Date of Service: 12/26/24 Procedure(s): XR shoulder RT min 2V Accession Number(s): [id number] cc: Temitope,Robbie PIERCE; Maria Bravo NP EXAMINATION: XR SHOULDER, RIGHT [...] Rigoberto Mccall MD 12/26/2024 02:33 PM EDT Dictated By: Rigoberto Mccall MD Signed By: <Electronically signed by Rigoberto Mccall MD in OV> 12/26/24 1433 DD/ 1405 TD/TT: 12/26/24 1428 Recovery Room Rn: [facility] External Provider IMG XR PROCEDURES Edited Result - Final documented in this encounter Visit Diagnoses Not on filedocumented in this encounter Additional Health Concerns Assessment Noted Time PHQ-9 Depression Total Score: 1 12/25/19 25 4:51 PM EDT documented as of this encounter Care Teams Swing Saw Operator Relationship Specialty Start Date End Date Name, MD Robbie [address] [place] [address] PCP - General Internal Medicine 11/10/23 documented as of this encounter
--- OUTSIDE RECORDS SUMMARY | 2024-12-26 15:27 | XMS_ITS | Encounter Summary ---
Author Organization [employer] Address [address] [facility] [address] [place] [address] Care Team Providers Care Senior Landscape Architect Name Role Phone Name, Robbie PIERCE Primary Care Provider [phone] Encounter Details Date Type Department Care Team ([facility] st Contact Info) Description 12/25/2024 Telephone [facility] MEDICINE [address] [place], [place] [phone] Name, MD Robbie [address] [place] [address] Social History Tobacco Use Types Packs/Day Years [...] encounter Miscellaneous Notes * Telephone Encounter - Deb Hernandez RN - 12/25/2024 11:41 AM EDT T/C to [facility] pharmacy. Reta states that pt picked up Hyzaar but Metoprolol rx is awaiting pickup. T/C to pt. Advised that Atorvastatin 20 mg was sent to [facility] on [address] and metoprolol is awaiting picking table worker at [facility] pharmacy. Pt verbalized understanding. * Addendum Note - Robbie Vazquez MD - 12/25/2024 10:53 AM EDTAddended by: ROBBIE VAZQUEZ on: 12/25/2024 10:53 AM Modules accepted: Orders * Telephone Encounter - Robbie Vazquez MD - 12/25/2024 10:52 AM EDT Ok. Let him know I will send it to his [facility] pharmacy * Telephone Encounter - Deb Hernandez RN - 12/25/2024 10:45 AM EDT T/C to pt. Advised of PCP recommendation. Pt reports agreement with plan and agrees to start a statin. States he will return to pharmacy today to picking table worker medication. Pt agrees to call with any new symptoms or side effects. * Telephone Encounter - Deb Hernandez RN - 12/25/2024 10:41 AM EDT ----- Message from Robbie Vazquez MD sent at 12/25/2024 10:36 AM EDT ----- Please call the patient and let him know I recommend starting a statin for primary prevention of cardiovascular disease based on his cholesterol level and other risk factors. If he agrees I will sendthe medication to the pharmacy. Please let me know. The 10-year ASCVD risk score (Kye SIMS, et al., 2019) is: 13.6% Values used to calculate the score: Age: 59 years Sex: Male Is Non- : No Diabetic: No Tobacco smoker: No Systolic Blood Pressure: 146 mmHg Is BP treated: Yes HDL Cholesterol: 46 mg/dL Total Cholesterol: 187 mg/dL documented in this encounter Plan of Treatment Upcoming Encounters Date Type Department Care Team (Late st Contact Info) Description 01/02/2025 2:30 PM EDT Telemedicine [facility] MEDICINE [address] [place] [address] 04/14/2025 1:30 PM EDT Office Visit [facility] MEDICINE [address] [place] [address] NameRobbie MD [address] [place] [address] documented as of this encounter Visit Diagnoses Not on filedocumented in this encounter Additional Health Concerns Assessment Noted Time PHQ-9 Depression Total Score: 1 12/25/19 25 4:51 PM EDT documented as of this encounter Care Teams Senior Landscape Architect Relationship Specialty Start Date End Date Robbie Vazquez MD [address] [place] [phone] PCP - General Internal Medicine 11/10/23 documented as of this encounter
[2024-12-26] MEDS: oxyCODONE HCl Immed Release 5 MG TABLET 10 MG PO (15:42)
[2024-12-26 17:17] VITALS: BP 158/104; PULSE 93; RESP 18; TEMP 36.4; O2SAT 99
== END 2024-12-26 17:17 | disposition home or self-care (01) ==
PROVIDERS: Emergency Provider Emergency Medicine Emergency Medical Services; PCP Internal Medicine Geriatric Medicine
DX: S43.401A Unspecified sprain of right shoulder joint, initial encounter (principal); W11.XXXA Fall on and from ladder, initial encounter; R07.81 Pleurodynia; M25.511 Pain in right shoulder; Y93.9 Activity, unspecified; Y92.9 Unspecified place or not applicable; Y99.9 Unspecified external cause status
CPT/HCPCS: 71101; 73030; 73200; 99283; 99284

== ENCOUNTER → 2024-12-26 14:05 | Outpatient (BNV) | payer MEDICAID, SELFPAY | PROVIDERS: PCP Internal Medicine Geriatric Medicine; Visit Provider Radiology Diagnostic Radiology | DX: M25.511 Pain in right shoulder (principal); R07.1 Chest pain on breathing | CPT/HCPCS: 71101; 73030; 73200 ==

== ENCOUNTER 2025-02-20 11:26 | Outpatient (AMB) | payer MEDICAID, SELFPAY ==
--- OUTSIDE RECORDS SUMMARY | 2024-10-30 05:20 | XMS_ITS ---
Author Organization [facility] Address [address] [place] [phone] Care Team Providers Care Top Closer Name Role Phone Miguel Umanzor MD, Andrew Primary Care Provide r Jono England Jr, Kenney De La Cruz [phone] REASON FOR VISIT Patient presents today for H pylori Encounters Encounter Location Date Provider Diagnosis [facility] [address] [place] [phone] 10/30/2024 Kenney England Jr Plan Of Treatment No Information Progress Notes * FRANCIE GORDON SrDOB:12/1964 (59 yo M)Acc No.[id number]:10/30/2024 Progress Notes Patient: FRANCIE TOVAR Sr Provider: Jose England MD :1965 A ge:59 Y S ex:Male Date:10/30/2024 Address:[address] [place], [place] [id number] Pcp:Andrew burris MD Subjective: * Chief Complaints: * 1 . Patient presents today for H pylori. * Medical History: Objective: * Vitals: Assessment: Plan: * Treatment: * * The named appointment provid er may or may not be the originator of this progress note, and it is not deemed complete until electronically signed by the appointment provider. Sign off status: Pending * Provider: Jose England MD Date: 10/30/2024 Generated for Tank buckley/Carlos Eduardo/Carolee on: 0 02/20/2025 12:12 PM EDT
[2025-02-20 11:33] VITALS: BMI 31.9
--- NOTE | 2025-02-20 11:33 | A.OFFVIS_ITS ---
Vital Signs 02/20/25 11:33 Height 5 ft 4 in Weight 186 lb BMI 31.9 Intake Visit Reasons: KAIAKO KURA TUARUA- Right shoulder pain s/p fall 12/26/24 Intake Note: Paco is a 59 year old left hand dominant male who presents today as a new patient for an ER follow up after he sustained a fall onto his right shoulder on 12/26/24. Patient reports that he fell off a ladder and presented to [facility] where x-rays and a CT scan was obtained. Currently he has constant pain that is located at the top of his shoulder, as well as an intermittent shooting pain. His pain at times radiates down his arm. Limited ROM. No numbness or tingling. Allergies shellfish derived Allergy (Severe, Verified 02/20/25 11:43) Anaphylaxis Medication List - Last Reconciled 02/20/25 by Musa Lezama PA-C amlodipine 5 mg PO DAILY fexofenadine (Felipa Allergy) 180 mg PO DAILY metoprolol succinate ER 50 mg PO DAILY omega 3-jei-vpk-fish oil 100-160-1,000 mg (Fish Oil) 1 cap PO DAILY omeprazole 20 mg PO DAILY HPI HPI KAIAKO KURA TUARUA- Right shoulder pain s/p fall 12/26/24: Details: 59 yo male presents to the office today for an injury he sustained to the right shoulder on 12/26/24 from falling off a ladder. He was seen in the ED, xrays and CT obtained which were negative for fracture or dislocations. He continues to have limitations with raising the arm and daily activities. No treatment to date. Previous LT RTC with success [facility] Medical History PAF (paroxysmal atrial fibrillation) Palpitations Allergic rhinitis Alcohol abuse GERD (gastroesophageal reflux disease) Lumbar spondylosis Obesity (BMI 30-39.9) Vitamin D deficiency Cervical radiculopathy Right carpal tunnel syndrome Fatty liver Hypercholesterolemia Hypertension Surgical History H/O colonoscopy H/O shoulder surgery History of back surgery History of open reduction and internal fixation (ORIF) procedure Family History Father No problems noted. Mother History of colostomy reversal Brother ETOH abuse Pancreatitis Myocardial infarct Brother Myocardial infarct Social History Housing: House Alcohol intake: current Alcohol intake frequency: a few times a month Patient Tobacco Use Status: Former Tobacco user Tobacco use type: Cigarette Years Smoked: quit 1989 e-Cigarette/Vaping Use: Never Used Second Hand Smoke Exposure: No Current occupational status: employed Current occupation: On leave Cognitive needs: No Hearing needs: No Vision needs: No Review of Systems Const All systems reviewed & are unremarkable except as noted in HPI and below Physical Exam Vital Signs: BMI result Body Mass Index 31.9 Const General: cooperative and no acute distress Orientation/consciousness: patient oriented x3 Resp Effort & Inspection: normal respiratory effort and able to speak in complete sentences Cardio Peripheral pulses: Peripheral pulses 2+ throughout Neuro General: patient oriented x3 Extrem Other: Left shoulder normal to inspection with TTP over the CCL . 90 FF and ABD, ER 45. +Sauceda Pain with RTC strength testing , weakness with empty can Office Procedures AMB Joint Injection/Aspiration Joint Injection/Aspiration Primary Site: right shoulder Prep: site was prepped using aseptic technique, ethochloride spray was applied and injection warnings given Injected: 80 mg of, DepoMedrol, with 8 mL of, 1% plain lidocaine and in the subcromial space Approach Used: posterolateral Coding - Glenohumeral/Tronchanteric Bursa/Intraarticular Procedure code (CPT) selection complete Results Reviewed Results Reviewed: XR shoulder RT min 2V IMPRESSION: 1. No acute bony abnormalities of the right shoulder. 2. Mild to moderate osteoarthrosis of the glenohumeral joint and AC joint. Assessment & Plan Assessment & Plan (1) Left shoulder pain: Comment: March 2022 MRISupraspinatus tendinosis with distal bursal surface partial tearing measuring 1.4 x 1.3 cm. 2. Mild proximal long head biceps tenosynovitis without a measurable tendon tear. 3. Pdqcapgz-lj-szlovf acromioclavicular osteoarthritis with tiny subacromial spurs. 4. Mild subacromial-subdeltoid bursitis. 2021 Code(s): M25.512 - Pain in left shoulder Category: Medical Plan We discussed options today which includes physical therapy to work on motion scap stabilization and rotator cuff strengthening exercises. I also offered him an injection in the right shoulder which she did consent to. The right shoulder was injected today with steroid and the patient tolerated the procedure well. I encouraged him to slowly increase activities as tolerated and if symptoms persist or worsen over the next 6-8 weeks she can contact our office and we will order an MRI of the right shoulder otherwise he will follow up as needed. Orders: Orders PT Evaluation and Treatment Today M25.512 - Pain in left shoulder Coding Level of Care Code New Pt Level 3 (55139) Complex EM visit Add On G2211 Diagnoses Left shoulder pain M25.512 CPT Codes Coding - Joint 7: 98241 - Glenohumeral/Tronchanteric Bursa/Intraarticular ([id number])
--- OUTSIDE RECORDS SUMMARY | 2025-02-20 12:13 | XMS_ITS | Clinical Summary ---
Author Organization [employer] Address [address] [facility] [address] [place] [address] Care Team Providers Care Range Operator Name Role Phone Name, Robbie PIERCE Primary Care Provider [phone] Allergies Active Allergy Reactions Criticality Noted Date Comments Shellfish Allergy 01/04/2024 Shellfish-Derived Products Itching,Runny nose,Shortness of breath,Swelling,Wheezing High 2004 Medications albuterol 108 (90 Base) MCG/ACT inhaler Inhale 2 puffs every 6 (six) hours if needed for wheezing. 18 g 4 Active omeprazole OTC (PriLOSEC OTC) 20 MG EC tabletIndications :History of Helicobacter pylori infection Take 1 tablet (20 mg) by mouth before breakfast. Do not crush, chew, or split. 30 tablet 11 4 Active fluticasone (Flonase Allergy Relief) 50 MCG/ACT nasal spray Administer 1 spray into each nostril Once per day. Shake gently. Before first use, prime pump. After use, clean tip and replace cap. 16 g 12 4 Active Blood Pressure kit Use once a day 1 kit 5 Active losartan-hydroCHL OROthiazide (Hyzaar) 50-12.5 MG tablet Take 1 tablet by mouth Once per day. 30 tablet 5 12/25/19 26 Active metoprolol succinate XL (Toprol XL) 25 MG 24 hr tablet Take 1 tablet (25 mg) by mouth Once per day. Do not crush or chew. 30 tablet 5 12/25/19 26 Active fluticasone furoate (Arnuity Ellipta) 100 MCG/ACT inhaler Inhale 1 puff Once per day. Rinse mouth with water after use to reduce aftertaste and incidence of candidiasis. Do not swallow. 1 each 5 12/25/19 26 Active atorvastatin (Lipitor) 20 MG tablet Take 1 tablet (20 mg) by mouth Once per day. 30 tablet 12/26/19 26 Active Active Problems Problem Noted Date Diagnosed Date Paroxysmal A-fib 12/24/2024 Class 1 obesity 01/04/2024 Heartburn 11/10/2023 Mild asthma 11/10/2023 HTN (hypertension) 09/13/2023 Tinnitus of both ears 09/13/2023 Encounters Date Type Department Care Team Description 01/03/2025 Telephone [facility] [address] [place] [phone] Robbie Linn MD 01/02/2025 2:30 PM EDT Telemedicine [facility] [address] [place] [phone] Kera Celestin RN Hypertension, unspecified type [I10] 01/02/2025 Travel 12/26/2024 Orders Only [facility] External Provider, [facility] 12/25/2024 Telephone [facility] [address] [place] [phone] Robbie Linn MD 12/24/2024 4:00 PM EDT Office Visit [address] [address] Robbie Linn MD Hypertension, unspecified type (Primary Dx); Paroxysmal A-fib ([facility]); Mild intermittent asthma without complication 12/24/2024 Travel 12/23/2024 Travel 12/23/2024 Telephone [facility] [address] [place] [address] Zuly Hopkins MA Chart Prep from Last 3 Months Immunizations Immunization Administration Dates Next Due HepB-CpG 11/30/2023 Influenza [...] 77 12/24/2024 4:17 PM EDT Temperature 37 C (98.6 F) 12/24/2024 4:17 PM EDT Respiratory Rate 12 [...] Care Team (Late st Contact Info) Description 04/14/2025 1:30 PM EDT Office Visit [facility] [address] [place] [address] [phone] Name, MD Robbie [address] [place] [address] Health Maintenance Due Date Last Done Comments CT Colonography 1965 FIT DNA/Cologuard 1965 FIT 1965 FOBT 1965 Sigmoidoscopy 1965 Hepatitis A Vaccines (1 of 2 - Risk 2-dose series) 1982 RSV Patients and Patients Aged 60 years or older (1 - Risk 60-74 years 1-dose series) 2023 Hepatitis B Vaccines (2 of 2 - CpG risk 2-dose series) 12/28/2023 11/30/2023 Zoster Vaccines (2 of 2) 01/25/2024 11/30/2023 COVID-19 Vaccine ( season) 2024 10/01/2021, 03/02/2021, 02/02/2021 Alcohol/Substance Use Screening 12/24/2025 12/24/2024 Depression Screening 12/24/2025 12/24/2024, 12/25/19 Disability Screening 12/24/2025 12/24/2024 SDOH Screening 12/24/2025 12/24/2024 Tobacco Screening 12/24/2025 12/24/2024 Colonoscopy 07/18/2028 07/18/2023 Colorectal Cancer Screening 07/18/2028 DTaP/Tdap/Td Vaccines (2 - Td or Tdap) 07/02/2029 07/02/2019, 05/12/2009 Lipid Panel 12/25/2029 12/25/2024, 04/21, 11/10/2023 HIV [...] patient's age to complete this topic Meningococcal B Vaccine Aged Out No l onger eligible based on patient's age to complete [...] Procedure Name Priority Date/Time Associated Diagnosis Comments CT SHOULDER WO CONTRAST RIGHT Routine 12/26/2024 4:49 PM EDT XR RIBS 3 VIEWS RIGHT W CHEST [...] Recently Relevant to Health Maintenance Results * CT Shoulder w/o Contrast Right (12/26/2024 4:49 PM EDT) Anatomical Region Laterality Modality Upper Extremities, Shoulder Right Comp uted Tomography 12/26/2024 4:49 PM EDT Narrative 12/26/2024 4:50 PM EDT [address] [address] [address] Scan Report Signed Patient: Paco Do MR#: [id number] : 1965 Acct:[id number] Age/Sex: 59 / M ADM Date: 12/26/24 Loc: HO.ED Attending Dr: Ordering Physician: Marianne Peacock Date of Service: 12/26/24 Procedure(s): CT shoulder RT wo IV con Accession Number(s): [id number] cc: Marianne Peacock; Name,Robbie PIERCE Report Number: [id number]: Total DLP = 315.00 mGy-cm CLINICAL HISTORY: pain, injury CT right shoulder without contrast Comparison: CR/SR - XR SHOULDER RT MIN 2V - 12/26/24 14:26 EDT Findings: No fracture or dislocation. No osseous lesion. Moderate degenerative change involving the acromioclavicular and glenohumeral joints. There is no joint effusion. There is no fluid collection. The muscles are normal in attenuation and bulk. Unremarkable limited evaluation of the vasculature. Impression: No acute findings. Moderate degenerative change. This document has been electronically signed by: Miryam Jain MD on 12/26/2024 16:49:37 Dictated By: Miryam Ball MD Signed By: <Electronically signed by Miryam Ball MD in OV> 12/26/24 1650 DD/ 1649 TD/TT: 12/26/24 1649 Fruit Thinner: Procedure Note Donotuseinterpreter, Image - 12/26/[address] [address] [address] Scan Report Signed Patient: Kenji Do#: [id number] : 1965Acct:[id number] Age/Sex: 59 / MADM Date: 12/26/24 Loc: HO.ED Attending Dr: Ordering Physician: Marianne Peacock Date of Service: 12/26/24 Procedure(s): CT shoulder RT wo IV con Accession Number(s): [id number] cc: Marianne Peacock; Name,Robbie PIERCE Report Number: [id number]: Total DLP = 315.00 mGy-cm CLINICAL HISTORY: pain, injury CT right shoulder without contrast Comparison: CR/SR - XR SHOULDER RT MIN 2V - 12/26/24 14:26 EDT Findings: No fracture or dislocation. No osseous lesion. Moderate degenerative change involving the acromioclavicular and glenohumeral joints. There is no joint effusion. There is no fluid collection. The muscles are normal in attenuation and bulk. Unremarkable limited evaluation of the vasculature. Impression: No acute findings. Moderate degenerative change. This document has been electronically signed by: Miryam Jain MD on 12/26/2024 16:49:37 Dictated By: Miryam Ball MD Signed By: <Electronically signed by Miryam Ball MD in OV> 12/26/240 DD/ 164 TD/TT: 12/26/241648 Fruit Thinner: us [facility] External Provider IMG CT PROCEDURES Edited Result - Final * XR Ribs 3 Views Right with Chest 1 View (12/26/2024 2:05 PM EDT) Anatomical Region Laterality Modality Radiographic Yani ging 12/26/2024 2:05 PM EDT Narrative 12/26/2024 2:40 PM EDT [address] [address] XRay Report Signed Patient: Paco Do MR#: [id number] : 1965 Acct:[id number] Age/Sex: 59 / M ADM Date: 12/26/24 Loc: HO.ED Attending Dr: Ordering Physician: Maria Bravo NP Date of Service: 12/26/24 Procedure(s): XR ribs RT min 3V w CXR1V Accession Number(s): [id number] cc: Name,Robbie PIERCE; Maria Bravo NP EXAMINATION: XR RIBS, RIGHT [...] 12/26/24 1437 DD/ 1405 TD/TT: 12/26/24 1428 Fruit Thinner: Procedure Note Donotuseinterpreter, Image - 12/26/[address] [address] XRay Report Signed Patient: Javed DoR#: [id number] : 1965Acct:[id number] Age/Sex: 59 / MADM Date: 12/26/24 Loc: HO.ED Attending Dr: Ordering Physician: Maria Bravo NP Date of Service: 12/26/24 Procedure(s): XR ribs RT min 3V w CXR1V Accession Number(s): [id number] cc: Name,Robbie PIERCE; Maria Bravo NP EXAMINATION: XR RIBS, RIGHT [...] 12/26/24 1437 DD/ 1405 TD/TT: 12/26/24 1428 Fruit Thinner: [facility] External Provider IMG XR PROCEDURES Edited Result - Final * XR Shoulder 2+ Views Right (12/26/2024 2:05 PM EDT) Anatomical Region Laterality Modality Upper Extremities, Shoulder Right Radi ographic Imaging 12/26/2024 2:05 PM EDT Narrative 12/26/2024 2:36 PM EDT [address] [address] XRay Report Signed Patient: Paco Do MR#: [id number] : 1965 Acct:[id number] Age/Sex: 59 / M ADM Date: 12/26/24 Loc: HO.ED Attending Dr: Ordering Physician: Maria Bravo NP Date of Service: 12/26/24 Procedure(s): XR shoulder RT min 2V Accession Number(s): [id number] cc: Name,Robbie PIERCE; Maria Bravo NP EXAMINATION: XR SHOULDER, [...] 12/26/24 1433 DD/ 1405 TD/TT: 12/26/24 1428 Fruit Thinner: Procedure Note Donotuseinterpreter, Image - 12/26/[address] [address] XRay Report Signed Patient: Kenji Do#: [id number] : 1965Acct:[id number] Age/Sex: 59 / MADM Date: 12/26/24 Loc: HO.ED Attending Dr: Ordering Physician: Maria Bravo NP Date of Service: 12/26/24 Procedure(s): XR shoulder RT min 2V Accession Number(s): [id number] cc: Temitope,Robbie PIERCE; Maria Bravo NP EXAMINATION: [...] 12/26/24 1433 DD/ 1405 TD/TT: 12/26/24 1428 Fruit Thinner: [facility] External Provider IMG XR PROCEDURES Edited Result - Final * (ABNORMAL) Lipid Panel, Standard (12/25/2024 7:36 AM EDT) Triglycerides 75 <150 mg/dL [facility] Comment:Desirable Triglyceri de: less than 150 mg/dLBorderline High Triglyceride 150-199 mg/dLHigh Triglyceride: 200-499 mg/dLVery High Triglyceride: greater than or equal to 5OO mg/dL Cholesterol 187 <200 mg/dL [facility] Comment:Desirable Cholestero l: less than 200 mg/dLBorderline High Cholesterol: 200-239 mg/dLHigh Cholesterol: greater than 239 mg/dL LDL Cholesterol Calculated 126(H) <100 mg/dL [facility] Comment:Desirable LDL: less than 100 mg/dLNear Optimal/Above Optimal LDL: 110- 129 mg/dLBorderline High LDL: 130-159 mg/dLHigh LDL: 160-189 mg/dLVery High LDL: greater than or equal to 190 mg/dL HDL Cholesterol 46 >40 mg/dL [facility] Comment:Desirable HDL: great er than 40 mg/dL Note: This HDL assay may give artificially low results in patients with liver disease. Blood Venous blood specimen / Unknown 12/25/2024 7:36 AM EDT 12/25/2024 7:36 AM EDT us Robbie Name LAB BLOOD ORDERABLES Final Resul t [facility] [address] [place] [address] [phone] * (ABNORMAL) Comprehensive Metabolic Panel (12/25/2024 7:36 AM EDT) Sodium 139 135 - 145 mmol/L [facility] Potassium 3.9 3.3 - 5.1 mmol/L [facility] Chloride 109(H) 96 - 108 mmol/L [facility] Carbon Dioxide 23 22 - 29 mmol/L [facility] Anion Gap 11(L) 12 - 20 [facility] Urea Nitrogen (BUN) 12 9 - 16 mg/dL [facility] Creatinine, Serum 0.99 0.5 - 1.4 mg/dL [facility] Estimated Glomerular Filt Rate >60 [facility] Comment:Chronic Kidney Disea se: Estimated GFR < 60 mL/min/1.85g1[place] Kidney Disease: Estimated GFR < 15 mL/min/1.73m2 Glucose 112 60 - 115 mg/dL [facility] Calcium 8.7 8.4 - 10.2 mg/dL [facility] Bilirubin, Total 0.6 0.0 - 1.0 mg/dL [facility] Aspartate Amino Transferase 24 5 - 37 U/L [facility] Alanine Aminotransferase 30 0 - 40 U/L [facility] Total Protein 7.6 6.5 - 8.0 g/dL [facility] Albumin Level 4.2 3.5 - 5.0 g/dL [facility] Alkaline Phosphatase 61 39 - 117 U/L [facility] Blood Venous blood specimen / Unknown 12/25/2024 7:36 AM EDT 12/25/2024 7:36 AM EDT us Robbie Linn MD LAB BLOOD ORDERABLES Final Resul t Performing Organization Address [facility] de Phone Number [facility] [address] [place] [phone] * Hepatitis C Antibody with Reflex to HCV, RNA, Quantitative, Real-Time PCR (05/06/2024 12:20 PM EDT) Hepatitis C Antibody Nonreactive Nonreactive [facility] Comment:Antibodies to HCV no t detected; does not exclude early acuteHCV infection. Blood Venous blood specimen / Unknown 05/06/2024 12:20 PM EDT 05/06/2024 1:45 PM EDT us Robbie Linn MD LAB BLOOD ORDERABLES Final Resul t Performing Organization Address [facility] de Phone Number [facility] [address] [place] [phone] * HIV-1/2 Antigen and Antibodies, Fourth Generation, with Reflexes (05/06/2024 12:20 PM EDT) HIV AB/AG Nonreactive Nonreactive [facility] Comment:HIV-1 p24 Ag and/or HIV-1/HIV-2 Ab not detected.A test result that is nonreactive does not exclude thepossibility of exposure to or infection with HIV-1 and/orHIV-2. Nonreactive results in this assay for individualswith prior exposure to HIV-1 and/or HIV-2 may be due toantigen and antibody levels that are below the limit ofdetection of this assay.The [employer] HIV Ag/Ab Combo assay result andsupplemental assay results should be interpreted inconjunction with the patient's clinical presentation,history and other laboratory results. If the results areinconsistent with clinical evidence, additional testing issuggested to confirm the result. Blood Venous blood specimen / Unknown 05/06/2024 12:20 PM EDT 05/06/2024 1:45 PM EDT Robbie Linn MD LAB BLOOD ORDERABLES Final Resul t [facility] [address] [place] [phone] * (ABNORMAL) Colonoscopy (07/18/2023) Colonoscopy Abnormal(A ) Normal [facility] External Provider HEALTH MAINTENANCE Final Result from Last 3 Months or Most Recently Relevant to Health Maintenance Insurance [facility] C3 HSN FULL Care Teams Range Operator Relationship Specialty Start Date End Date Name, MD Robbie [address] [place] [phone] PCP - General Internal Medicine 11/10/23
== END 2025-02-20 13:01 | disposition home or self-care (01) ==
LOC: HO.HOS 11:27
PROVIDERS: PCP Internal Medicine Geriatric Medicine; Visit Provider Physician Assistant
DX: M25.511 Pain in right shoulder (principal); M77.8 Other enthesopathies, not elsewhere classified
CPT/HCPCS: 20610; 99203

== ENCOUNTER → 2025-02-20 11:26 | Outpatient (BNVA) | payer MEDICAID, SELFPAY | PROVIDERS: PCP Internal Medicine Geriatric Medicine; Visit Provider Physician Assistant | DX: M25.511 Pain in right shoulder (principal); Z09 Encounter for follow-up examination after completed treatment for conditions other than malignant neoplasm | CPT/HCPCS: 20610; 99212; J1010; J2003 ==

== ENCOUNTER 2025-04-17 08:59 | Outpatient (RCR) | payer MEDICAID, SELFPAY ==
--- NOTE | 2025-03-19 17:39 | MHC.PT.EP ---
[facility] [place] Office [place] Office [place] [facility] [address] Dona Quach [address] [phone] F: [phone] F: [phone] F: [phone] F: [phone] Physical Therapy Plan of Care Date of Evaluation: 03/17/25 Date of Surgery: Diagnosis: R shoulder pain. Assessment: Pt is a 59 y/o LHD male with PMHx of PAF, GERD, Cervical radiculopathy, Right CTS, HTN, Hx of shoulder surgery, Hx of back surgery who is referred to PT for eval and treat of R shoulder pain s/p fall which is resulting in decreased tolerance for performing shoulder abduction activities, lifting objects of weight, reaching his back and neck for hygiene and dressing, laying on his R side, as well as dressing pullovers and placing objects on high shelves secondary to decreased R shoulder ROM and strength, painful muscle test, decreased scapular posture, increased L upper trapezius and levator tissue tension and pain with activity. Pt is deemed an appropriate candidate to receive skilled PT services to address their physical impairments in order to improve their functional ability. Frequency and Duration: The patient will be seen 2 x/ wk x 4 wks. Short Term Goals: Initiate home program. improve baseline pain to < 4/10; initial: 6-8/10. Sorting And Folding Supervisor Goals: I with home program. Pt will be able to place objects on high shelf with managed Sx; initial; 8/10 difficulty. Pt will improve SPADI outcome measure by at least 13 points. Pt will be able to wash his back and neck with managed Sx; initial: 8/10 difficulty. Treatment Plan: Modalities to reduce pain, spasms and effusion. Manual therapy to restore motion and function. Therapeutic exercise to improve strength and flexibility. Neuromuscular re-education for posture and balance. Therapeutic activities to return to functional activities of daily living. Electronically signed by: Otilio Jane PT. Please sign and return to therapist. Thank you for your referral.
--- NOTE | 2025-04-17 09:57 | MHC.PT.DC ---
[facility] [place] Office [place] Office [place] Office [address] Dona Quach [address] [phone] F: [phone] F: [phone] F: [phone] F: [phone] Physical Therapy Discharge Report Diagnosis: R shoulder pain. Date of Surgery: Date of Evaluation: 03/17/25 Date of Discharge: 04/17/25 Treatments to Date: 9 Cancellations to Date: No Shows to Date: Discharge Status: Achieved Goals Improved Function Independent with HEP Discharge Summary: Chintan has been an active and motivated participant in his therapy in and out of the clinic, he is managed of his Sx, improved of his function, has achieved his therapeutic goals and is in agreement with DC today. Electronically signed by: Otilio Jane PT. Please sign and return to therapist. Thank you for your referral.
== END 2025-04-17 09:55 | disposition home or self-care (01) ==
LOC: HO.PT 08:59
PROVIDERS: PCP Internal Medicine Geriatric Medicine; Visit Provider Physician Assistant
DX: M25.512 Pain in left shoulder (principal)
CPT/HCPCS: 97110; 97161; 97530